=== PATIENT | female | born 1980 | race Caucasian/White ===

== ENCOUNTER 2019-08-06 08:55 | Emergency (ER) | payer OTHER, SELFPAY ==
[2019-08-06 09:25] VITALS: BP 144/97; PULSE 85; RESP 16; TEMP 36.8; O2SAT 100
--- NOTE | 2019-08-06 09:33 | ED.URI ---
HPI - URI/Sore Throat General Chief Complaint: Upper Respiratory Infection Stated Complaint: Cold/Flu symptoms Time Seen by Provider: 08/06/19 09:33 Source: patient and family Mode of arrival: ambulatory History of Present Illness HPI Narrative: Patient presents with concerns that she may have influenza. Cough cold fever and generalized body aches for the past 2 days. Also reports sore throat. No trouble swallowing no drooling normal appetite normal activity able to tolerate p.o. fluids well has not take anything [id number] for symptoms. Severity: mild Related Data Home Medications Medication Instructions Recorded Confirmed alprazolam 1 mg PO BID PRN 06/04/19 06/04/19 escitalopram oxalate 20 mg PO DAILY 06/04/19 06/04/19 omeprazole 40 mg PO DAILY 06/04/19 06/04/19 Allergies Allergy/AdvReac Type Severity Reaction Status Date / Time No Known Allergies Allergy Verified 06/04/19 09:22 Review of Systems Review of Systems: Narrative: CONSTITUTIONAL: Denies fever, chills, or sweats. EYES: Denies visual changes, redness, or discharge. ENT: Denies otalgia. Reports nasal congestion sore throat and body aches CARDIOVASCULAR: Denies chest pain, palpitations, or edema. RESPIRATORY: Denies cough or dyspnea. GASTROINTESTINAL: Denies abdominal pain, nausea, vomiting, or diarrhea. GENITOURINARY: Denies dysuria or hematuria. SKIN: Denies rash or itching. MUSCULOSKELETAL: Denies back pain, joint pain, or myalgia. NEUROLOGIC: Denies headache, numbness, or weakness. PSYCHIATRIC: Denies anxiety or depression. [facility] Family History Family History Other Asthma Depression Diabetes mellitus Family history of arthritis Family history of malignant neoplasm of breast Family history of mental disorder Hypertension Social History Social History Smoking status: Current every day smoker Alcohol intake: current Comments At time of signature, agree with nursing past medical, surgical, social and family history. There is no relevant family history pertinent to the presenting complaint Exam Narrative: Exam Narrative: GENERAL: Well-appearing, well-nourished, and in no acute distress. HEAD: Normocephalic, atraumatic. EYES: PERRLA and EOMI. ENT: Nares clear, no rhinorrhea or epistaxis. Mucous membranes moist. NECK: Supple. CHEST: Clear to auscultation. No respiratory distress. HEART: Regular rate and rhythm. No murmur heard. Normal peripheral pulses. ABDOMEN: Soft, nontender, nondistended, normal active bowel sounds. EXTREMITIES: Normal range of motion. No edema. SKIN: Warm, dry, no rash. NEURO: No focal deficits. Alert and oriented x3. Erich Coma Scale Eye Opening: Spontaneous 4 Erich Coma Scale Motor: Obeys Commands 6 Erich Coma Scale Verbal: Oriented 5 Erich Coma Scale Total 15 Course Vital Signs Vital signs: Vital Signs Temperature 36.8 C 08/06/19 09:25 Pulse Rate 85 08/06/19 09:25 Respiratory Rate 16 08/06/19 09:25 Blood Pressure 144/97 H 08/06/19 09:25 Pulse Oximetry 100 08/06/19 09:25 Temperature 36.8 C 08/06/19 09:25 Pulse Rate 85 08/06/19 09:25 Respiratory Rate 16 08/06/19 09:25 Blood Pressure 144/97 H 08/06/19 09:25 Pulse Oximetry 100 08/06/19 09:25 Please INDERJIT schedule a followup visit with your personal physician for further evaluation and treatment. Including recheck and discussion of your blood pressure. If your symptoms persist, change or worsen significantly before you can contact your personal physician then please, without delay, go to the emergency department for further evaluation Critical dx considered and discussed with pt. Educated patient on red flag s/s and to go to ED if s/s occur. Discussed with pt when to return to [facility] or primary care provider. Pt gave verbal undertstanding, all questions were answered, and pt was agreeable to plan
== END 2019-08-06 10:02 | disposition home or self-care (01) ==
PROVIDERS: Emergency Provider Nurse Practitioner Family
DX: B34.9 Viral infection, unspecified (principal); J06.9 Acute upper respiratory infection, unspecified; J02.8 Acute pharyngitis due to other specified organisms
CPT/HCPCS: 87081; 87804; 87880; 99213; G0463

== ENCOUNTER 2021-12-27 11:36 | Emergency (ER) | payer OTHER, SELFPAY ==
[2021-12-27 11:42] VITALS: BP 126/73; PULSE 86; RESP 20; TEMP 36.9; O2SAT 100
--- NOTE | 2021-12-27 12:56 | ED.GENADULT ---
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 Patient states she has been nauseated no vomiting tenderness with movement and palpation voiced. Patient denies any pain to lower abdominal quadrants or any CVA tenderness. Patient reports that she feel like she has pulled muscles in her stomach region but pain continues, patient does have pain medication and muscle relaxers she takes for her chronic pain. MD complaint: abdominal discomfort Related Data Home Medications Medication Instructions Recorded Confirmed albuterol sulfate 90 mcg/actuation inh inhalation 12/27/21 aerosol inhaler atorvastatin 20 mg tablet tablet 12/27/21 cyclobenzaprine 10 mg tablet tablet 12/27/21 escitalopram oxalate 20 mg tablet tablet 12/27/21 hydrocodone 7.5 mg-acetaminophen tablet 12/27/21 325 mg tablet lorazepam 1 mg tablet tablet 12/27/21 omeprazole 40 mg capsule,delayed cap 12/27/21 release triamcinolone acetonide 0.1 % ea topical 12/27/21 topical ointment Allergies Allergy/AdvReac Type Severity Reaction Status Date / Time No Known Allergies Allergy Verified 06/04/19 09:22 Review of Systems Review of Systems: CONSTITUTIONAL: Denies fever, chills, or sweats. EYES: Denies visual changes, redness, or discharge. ENT: Denies rhinorrhea, congestion, sore throat, or otalgia. CARDIOVASCULAR: Denies chest pain, palpitations, or edema. RESPIRATORY: Denies cough or dyspnea. GASTROINTESTINAL: Positive for abdominal pain around umbilicus area, some nausea,no vomiting, or diarrhea. GENITOURINARY: Denies dysuria or hematuria. SKIN: Denies rash or itching. MUSCULOSKELETAL: Positive for chronic back pain, joint pain, or myalgia. NEUROLOGIC: Denies headache, numbness, or weakness. PSYCHIATRIC: Positive for history of anxiety or depression. [facility] Past Medical History Medical History (Updated 12/28/21 @ 16:01 by Maite Haney NP) Anxiety and depression Asthma Chronic GERD Eczema Elevated cholesterol Fibromyalgia Surgical History Surgical History (Updated 12/28/21 @ 15:50 by Maite Haney NP) H/O umbilical hernia repair Hx of cholecystectomy Previous back surgery Previous section Family History Family History Other Asthma Depression Diabetes mellitus Family history of arthritis Family history of malignant neoplasm of breast Family history of mental disorder Hypertension Social History Social History Smoking status: Current every day smoker Alcohol intake: current Comments At time of signature agree with nursing documentation of past medical, surgical, social, and family history. There is no relevant family history pertinent to presenting complaint. Exam Narrative: GENERAL: Well-appearing, well-nourished, and in no acute distress. HEAD: Normocephalic, atraumatic. EYES: PERRLA and EOMI. ENT: Nares clear, no rhinorrhea or epistaxis. Mucous membranes moist.TM's normal with good light reflex, throat pink with no lesions or exudates or tonsil swelling. NECK: Supple.no lymphadenopathy CHEST: Clear to auscultation. No respiratory distress.SAO2 100% on room air HEART: Regular rate and rhythm. No murmur heard. Normal peripheral pulses. ABDOMEN: Soft, tender to abdomen above umbilicus, no palpable mass noted, nondistended, normal active bowel sounds, no vomiting or any diarrhea EXTREMITIES: Normal range of motion. No edema. SKIN: Warm, dry, no rash. NEURO: No focal deficits. Alert
== END 2021-12-27 13:19 | disposition home or self-care (01) ==
PROVIDERS: Emergency Provider Registered Nurse; PCP Family Medicine
DX: R10.9 Unspecified abdominal pain (principal); F17.200 Nicotine dependence, unspecified, uncomplicated; J45.909 Unspecified asthma, uncomplicated; E78.00 Pure hypercholesterolemia, unspecified; M79.7 Fibromyalgia; F41.9 Anxiety disorder, unspecified; F32.A Depression, unspecified
CPT/HCPCS: 99211; G0463

== ENCOUNTER 2025-05-06 10:49 | Outpatient (CLI) | payer OTHER, SELFPAY ==
--- NOTE | ~2025-05-06 | US_ITS ---
EXAMINATION: US soft tissue abdomen, 05/06/2025 12:30 CDT HISTORY: PERIUMBILICAL PAIN Comparison: None Technique: Sanders-scale and color Doppler images were obtained. Findings: Correlating with the palpable area there is no abnormal mass or mass effect. No abnormal flow. There is no hernia identified IMPRESSION: Unremarkable exam Reviewed, dictated and finalized at location P. IMPRESSION: Unremarkable exam
--- OUTSIDE RECORDS SUMMARY | 2025-05-06 12:43 | XMS_ITS | Encounter Summary ---
Author Organization [facility] Address [address] [place] [address] Phone Care Team Providers Care Design Tech Name Role Phone Harjit Bhandari MD Primary Care Provider [phone] Minerva Connor APRN, CNP Primary Care Provider [phone] Reason for Visit * Reason Comments Medication Refill Encounter Details Date Type Department Care Team (Late st Contact Info) Description 07/28/2023 Refill [facility] [address] [place] [address] Harjit Bhandari MD [address] [place] [address] Medication Refill Social History Tobacco Use Types Packs/Day Years Used Date Smoking Tobacco: Every Day Cigarettes 1 15 Smokeless Tobacco: Never Alcohol Use Standard Drinks/Week Comments No 0 (1 standard drink = 0.6 oz pur e alcohol) Education Answer Date Recorded What is the highest level of school you have completed or the highest degree you have received? 12th grade 03/10/2022 Sexually Active Control Partners Comments Yes Surgical Male Comments No Sex and Gender Information Value Date Recorded Sex Assigned at Not on file Legal Sex Female 7:32 PM CDT Gender Identity Not on file Sexual Orientation Not on file documented as of this encounter Miscellaneous Notes * Telephone Encounter - Danni Downey RMA - 08/02/2023 1:39 PM ENVIRONMENTAL FIELD SERVICES TECHNICIAN 08/10 appt RONMENTAL FIELD SERVICES TECHNICIAN * Telephone Encounter - Danni Downey RMA - 07/31/2023 10:54 AM ENVIRONMENTAL FIELD SERVICES TECHNICIAN Lvm to schedule RONMENTAL FIELD SERVICES TECHNICIAN * Telephone Encounter - Jodie Cedillo RN - 07/28/2023 11:30 AM CST Needs OV with PCP RONMENTAL FIELD SERVICES TECHNICIAN * Telephone Encounter - Jodie Cedillo RN - 07/28/2023 11:29 AM CST Medication failed the protocol, provider to review and approve the medication order if appropriate. Requested Prescriptions Pending Prescriptions Disp Refills atorvastatin (LIPITOR) 20 MG Tablet [Pharmacy Med Name: ATORVASTATIN 20 MG TABLET] 90 Tablet 0 Sig: TAKE 1 TABLET BY MOUTH EVERY DAY Hmg CoA Reductase Inhibitors Protocol Failed - 07/28/2023 12:33 AM Failed - Visit with relevant provider in past 12 months or upcoming 90 days Recent Visits Date Type Provider Dept 07/28/22 Office Visit Harjit Bhandari MD [facility] Showing recent visits within past 365 days and meeting all other requirements Future Appointments No visits were found meeting these conditions. Showing future appointments within next 90 days and meeting all other requirements Failed - Lipid panel in past 12 months No results found for: LDL, HDLCHOLESTE, CHOLESTEROL, TRIGLYCRIDES, VLDL, CHDL, HDLNON Failed - CMP in past 12 months CREATININE - POCT Date Value Ref Range Status 09/09/2022 0.9 0.6 - 1.3 mg/dL Final Passed - No positive test in the past 12 months or most recent test was negative Passed - No active on record RONMENTAL FIELD SERVICES TECHNICIAN documented in this encounter Plan of Treatment Not on file documented as of this encounter Visit Diagnoses Diagnosis Hypertriglyceridemia Pure hyperglyceridemia documented in this encounter Additional Health Concerns Assessment Noted Time PHQ-9 Depression Total Score: 0 06/19/20 19 10:00 AM ENVIRONMENTAL FIELD SERVICES TECHNICIAN documented as of this encounter Care Teams Design Tech Relationship Specialty Start Date End Date Harjit Bhandari MD PCP - General Family Medicine 12/06/18 11/20/23 Minerva Connor APRN, CNP PCP - General Family Medicine 01/01/24 documented as of this encounter
--- OUTSIDE RECORDS SUMMARY | 2025-05-06 12:43 | XMS_ITS | Encounter Summary ---
Author Organization [facility] Address [address] [place] [address] Phone Care Team Providers Care Meter Tester Polyphase Name Role Phone Harjit Bhandari MD Primary Care Provider Minerva Connor APRN, CNP Primary Care Provider [phone] Reason for Visit * Reason Comments Medication Refill Encounter Details Date Type Department Care Team (Late st Contact Info) Description 04/14/2023 Refill [facility] Family [facility] [address] [place] [address] Harjit Bhandari MD [address] [place] [address] Medication Refill Social History Tobacco Use Types [...] encounter Miscellaneous Notes * Telephone Encounter - Jodie Cedillo RN - 04/14/2023 5:14 PM CDT Medication failed the protocol, provider to review and approve the medication order if appropriate. Requested Prescriptions Pending Prescriptions Disp Refills triamcinolone (KENALOG) 0.1 % Ointment [Pharmacy Med Name: TRIAMCINOLONE 0.1% OINTMENT] 80 g 0 Sig: APPLY SPARINGLY TO AFFECTED AREA(S) 3 TIMES DAILY Not Delegated - Topical Steroids Protocol Failed - 04/14/2023 4:29 PM Failed - This refill cannot be delegated Passed - Visit with relevant provider in past 12 months or upcoming 90 days Recent Visits Date Type Provider Dept 07/28/22 Office Visit Harjit Bhandari MD [facility] Showing recent visits within past 365 days and meeting all other requirements Future Appointments No visits were found meeting these conditions. Showing future appointments within next 90 days and meeting all other requirements documented in this encounter Plan of Treatment Not on file documented as of this encounter Visit Diagnoses Not on filedocumented in this encounter Additional Health Concerns Assessment Noted Time PHQ-9 Depression Total Score: 0 06/19/20 19 10:00 AM INSTRUCTOR PSYCHIATRIC AIDE documented as of this encounter Care Teams Meter Tester Polyphase Relationship Specialty Start Date End Date Harjit Bhandari MD PCP - General Family Medicine 12/06/18 11/20/23 Minerva Connor APRN, CNP PCP - General Family Medicine 01/01/24 documented as of this encounter
--- OUTSIDE RECORDS SUMMARY | 2025-05-06 12:43 | XMS_ITS | Encounter Summary ---
Author Organization [facility] Address [address] [place] [address] Phone Care Team Providers Care Director Of Institutional Giving Name Role Phone Harjit Bhandari MD Primary Care Provider [phone] Minerva Connor APRN, CNP Primary Care Provider [phone] Reason for Visit * Reason Comments Medication Refill Encounter Details Date Type Department Care Team (Late st Contact Info) Description 08/10/2023 Refill [facility] - Family Medicine [facility] [address] [place] [address] Harjit Bhandari MD [address] [place] [address] Medication Refill Social History Tobacco Use Types [...] on file documented as of this encounter Functional Status * Question Answer Date of Assessment Author Little interest or pleasure in doing things Not at all 08/10/2023 1:00 PM PHOTOENGRAVER APPRENTICE Lauryn Nunes , AUTOMOTIVE SALESPERSON Feeling down, depressed, or hopeless Not at all 08/10/2023 1:00 PM PHOTOENGRAVER APPRENTICE Lauryn Nunes CMA * Over the past 2 weeks, how often have you been bothered by any of the following problems? Question Answer Date of Assessment Author Patient Health Questionnaire -2 Score 0 08/10/2023 1:00 PM PHOTOENGRAVER APPRENTICE Lauryn Nunes CMA documented as of this encounter Miscellaneous Notes * Telephone Encounter - Jodie Cedillo RN - 08/15/2023 7:26 AM CST Name from pharmacy: ESCITALOPRAM 20 MG TABLET Will file in chart as: escitalopram (LEXAPRO) 20 MG Tablet The original prescription was reordered on 08/14/2023 by Harjit Bhandari MD. OENGRAVER APPRENTICE * Telephone Encounter - Jodie Cedillo RN - 08/11/2023 10:57 AM CST duplicate OENGRAVER APPRENTICE documented in this encounter Plan of Treatment Not on file documented as of this encounter Visit Diagnoses Not on filedocumented in this encounter Additional Health Concerns Assessment Noted Time PHQ-9 Depression Total Score: 0 06/19/20 19 10:00 AM PHOTOENGRAVER APPRENTICE documented as of this encounter Care Teams Director Of Institutional Giving Relationship Specialty Start Date End Date Harjit Bhandari MD PCP - General Family Medicine 12/06/18 11/20/23 Minerva Connor APRN, CNP PCP - General Family Medicine 01/01/24 documented as of this encounter
--- OUTSIDE RECORDS SUMMARY | 2025-05-06 12:43 | XMS_ITS | Encounter Summary ---
Author Organization [facility] Address [address] [place] [address] Phone Care Team Providers Care Dental Director Name Role Phone Harjit Bhandari MD Primary Care Provider [phone] Minerva Connor APRN, CNP Primary Care Provider [phone] Reason for Visit * Reason Comments Medication Refill Encounter Details Date Type Department Care Team (Late st Contact Info) Description 07/29/2023 Refill [facility] - Family [facility] [address] [place] [address] Harjit Bhandari MD [address] [place] [address] Medication Refill Social History Tobacco Use Types [...] Encounter - Danni Downey RMA - 08/02/2023 10:12 AM ASSISTANT PRESSMAN LVM STANT PRESSMAN * Telephone Encounter - Danni Downey RMA - 07/31/2023 11:31 AM ASSISTANT PRESSMAN LVm STANT PRESSMAN * Telephone Encounter - Jodie Cedillo RN - 07/31/2023 11:08 AM CST Needs OV with PCP for refills. STANT PRESSMAN * Telephone Encounter - Jodie Cedillo RN - 07/31/2023 11:07 AM CST Last appt 07/28/22 - last Rx 04/13/23 STANT PRESSMAN documented in this encounter Plan of Treatment Not on file documented as of this encounter Visit Diagnoses Diagnosis Neck pain, musculoskeletal Cervicalgia documented in this encounter Additional Health Concerns Assessment Noted Time PHQ-9 Depression Total Score: 0 06/19/20 19 10:00 AM ASSISTANT PRESSMAN documented as of this encounter Care Teams Dental Director Relationship Specialty Start Date End Date Harjit Bhandari MD PCP - General Family Medicine 12/06/18 11/20/23 Minerva Connor APRN, JOANNE PCP - General Family Medicine 01/01/24 documented as of this encounter
--- OUTSIDE RECORDS SUMMARY | 2025-05-06 12:43 | XMS_ITS | Encounter Summary ---
Author Organization [facility] Address [address] [place] [address] Phone Care Team Providers Care Ice Delivery Driver Name Role Phone Harjit Bhandari MD Primary Care Provider [phone] Minerva Connor APRN, CNP Primary Care Provider [phone] Reason for Visit * Reason Comments Medication Refill Encounter Details Date Type Department Care Team (Late st Contact Info) Description 02/18/2021 Refill [facility] Family Medicine [facility] [address] [place] [address] Harjit Bhandari MD [address] [place] [address] Medication Refill Social History Tobacco Use Types Packs/Day Years Used Date Smoking Tobacco: Every Day Cigarettes Smokeless Tobacco: Never Alcohol Use Standard Drinks/Week Comments No 0 (1 standard drink = 0.6 oz pur e alcohol) Education Answer Date Recorded What is the highest level of school you have completed or the highest degree you have received? 11th grade 08/13/2020 Sexually Active Control Partners Comments Yes Surgical Male Comments No Sex and Gender Information Value Date Recorded Sex Assigned at Not on file Legal Sex Female 7:32 PM CDT Gender Identity Not on file Sexual Orientation Not on file COVID-19 Exposure Response Date Recorded In the last month, have you been in contact with someone who was confirmed or suspected to have Coronavirus / COVID-19? No / Unsure 02/15/2021 9:55 AM CDT documented as of this encounter Miscellaneous Notes * Telephone Encounter - NguyenBjliz Fairchild RN - 02/18/2021 11:25 AM CDT [place] 01/20/21 Medication failed the protocol, provider to review and approve the medication order if appropriate. Requested Prescriptions Pending Prescriptions Disp Refills LORazepam (ATIVAN) 1 MG Tablet [Pharmacy Med Name: LORAZEPAM 1 MG TABLET] 60 Tablet 0 Sig: TAKE 1 TABLET BY MOUTH TWICE A DAY [facility] Not Delegated - Anesthesia: Anesthetics & Sedatives Failed - 02/18/2021 11:25 AM Failed - This refill cannot be delegated Passed - Valid encounter within last 6 months Past Office Visits Recent Outpatient Visits 3 days ago Left arm numbness [facility] Harjit Toussaint MD 1 month ago Primary osteoarthritis involving multiple joints [facility] Harjit Toussaint MD 4 months ago Chest pain, unspecified type [facility] Harjit Toussaint MD 6 months ago Primary osteoarthritis involving multiple joints [facility] Harjit Toussaint MD 11 months ago Sacroiliac joint dysfunction of both sides [facility] Harjit Toussaint MD Upcoming Appointments Future Appointments In 1 month [id number] [facility], [facility] In 1 month [id number] [facility], [facility] In 1 month [facility]it Bhandari MD [facility] IRON MOLDER HELPER - Recent and Past Visits Recent Visits Date Type Provider Dept 02/15/21 Office Visit Harjit Bhandari MD [facility] 12/30/20 Office Visit Harjit Bhandari MD [facility] 09/25/20 Office Visit Harjit Bhandari MD [facility] 08/13/20 Telemedicine Harjit Bhandari MD [facility] 03/04/20 Telemedicine Harjit Bhandari MD [facility] 11/25/19 Office Visit Harjit Bhandari MD [facility] Showing recent visits within past 460 days with a meds authorizing provider and meeting all other requirements Future Appointments Date Type Provider Dept 04/01/21 Appointment Harjit Bhandari MD [facility] Showing future appointments within next 90 days with a meds authorizing provider and meeting all other requirements documented in this encounter Plan of Treatment Not on file documented as of this encounter Visit Diagnoses Diagnosis Anxiety Anxiety state, unspecified documented in this encounter Additional Health Concerns Assessment Noted Time PHQ-9 Depression Total Score: 0 06/19/20 19 10:00 AM BOX REPAIRER documented as of this encounter Care Teams Ice Delivery Driver Relationship Specialty Start Date End Date Harjit Bhandari MD PCP - General Family Medicine 12/06/18 11/20/23 Minerva Connor APRN, POND SAWYER PCP - General Family Medicine 01/01/24 documented as of this encounter
--- OUTSIDE RECORDS SUMMARY | 2025-05-06 12:43 | XMS_ITS | Encounter Summary ---
Author Organization [facility] Address [address] [place] [address] Phone Care Team Providers Care Parts Processor Name Role Phone Harjit Bhandari MD Primary Care Provider [phone] Minerva Connor APRN, CNP Primary Care Provider [phone] Reason for Visit * Reason Comments Medication Refill Encounter Details Date Type Department Care Team (Late st Contact Info) Description 12/17/2020 Refill [facility] [address]2 [place] [address] Harjit Bhandari MD [address] [place] [address] Medication Refill Social History Tobacco Use Types Packs/Day Years Used Date Smoking Tobacco: Every Day Cigarettes Smokeless Tobacco: Never Alcohol Use Standard Drinks/Week Comments No 0 (1 standard drink = 0.6 oz pur e alcohol) Education Answer Date Recorded What is the highest level of school you have completed or the highest degree you have received? 11th grade 08/13/2020 Comments No Sex and Gender Information Value Date Recorded Sex Assigned at Not on file Legal Sex Female 7:32 PM CDT Gender Identity Not on file Sexual Orientation Not on file documented as of this encounter Miscellaneous Notes * Telephone Encounter - Marlin Whiteside RN - 12/17/2020 2:54 PM CDT Medication failed the protocol, provider to review and approve the medication order if appropriate.Last OV 09/25/20, See UDS results from 09/25/20. PDMP reviewed-see month of October Requested Prescriptions Pending Prescriptions Disp Refills LORazepam (ATIVAN) 1 MG Tablet [Pharmacy Med Name: LORAZEPAM 1 MG TABLET] 60 Tablet 0 Sig: TAKE 1 TABLET BY MOUTH TWICE A DAY healthfinch Not Delegated - Anesthesia: Anesthetics & Sedatives Failed - 12/17/2020 2:54 PM Failed - This refill cannot be delegated Passed - Valid encounter within last 6 months Past Office Visits Recent Outpatient Visits 2 months ago Chest pain, unspecified type [facility] Harjit Brown MD 4 months ago Primary osteoarthritis involving multiple joints [facility] Harjit Toussaint MD 9 months ago Sacroiliac joint dysfunction of both sides [facility] Harjit Toussaint MD 1 year ago Current moderate episode of major depressive disorder, unspecified whether recurrent (HCC) [facility] Harjit Toussaint MD 1 year ago Acute pain of left knee [facility] Edu GilsonHarjit Marquez MD Upcoming Appointments Future Appointments In 1 week Harjit Bhandari MD [facility]YSTAL CUTTER - Recent and Past Visits Recent Visits Date Type Provider Dept 09/25/20 Office Visit Harjit Bhandari MD [facility] 08/13/20 Telemedicine Harjit Bhandari MD [facility] 03/04/20 Telemedicine Harjit Bhandari MD [facility] 11/25/19 Office Visit Harjit Bhandari MD [facility] Showing recent visits within past 460 days with a meds authorizing provider and meeting all other requirements Future Appointments Date Type Provider Dept 12/28/20 Appointment Harjit Bhandari MD [facility] Showing [...] Total Score: 0 06/19/20 19 10:00 AM INTERVENTIONAL TECHNOLOGIST documented as of this encounter Care Teams Parts Processor Relationship Specialty Start Date End Date Harjit Bhandari MD PCP - General Family Medicine 12/06/18 11/20/23 Minerva Connor APRN, JOANNE PCP - General Family Medicine 01/01/24 documented as of this encounter
--- OUTSIDE RECORDS SUMMARY | 2025-05-06 12:43 | XMS_ITS | Encounter Summary ---
Author Organization [facility] Address [address] [place] [address] Phone Care Team Providers Care Search Engine Optimization Consultant Name Role Phone Harjit Bhandari MD Primary Care Provider [phone] Minerva Connor APRN, CNP Primary Care Provider [phone] Reason for Visit * Reason Comments Medication Refill Encounter Details Date Type Department Care Team (Late st Contact Info) Description 05/13/2023 Refill [facility] Family [facility] [address]2 [place] [address] Harjit Bhandari MD [address]1 [place] [address] Medication Refill Social History Tobacco Use Types [...] encounter Miscellaneous Notes * Telephone Encounter - Ema Curry RN - 05/13/2023 11:49 AM CDT Medication failed the protocol, provider to review and approve the medication order if appropriate. Requested Prescriptions Pending Prescriptions Disp Refills escitalopram (LEXAPRO) 20 MG Tablet [Pharmacy Med Name: ESCITALOPRAM 20 MG TABLET] 90 Tablet 0 Sig: TAKE 1 TABLET BY MOUTH EVERY DAY SSRI (6 Month Refill Only) Protocol Failed - 05/13/2023 8:35 AM Failed - Visit with relevant provider in past 6 months or upcoming 90 days Recent Visits No visits were found meeting these conditions. Showing recent visits within past 182 days and meeting all other requirements Future Appointments No visits were found meeting these conditions. Showing future appointments within next 90 days and meeting all other requirements Failed - Has an encounter in the past 6 months with a depression, anxiety, adjustment disorder, OCD, or PTSD visit diagnosis Passed - No test in the past 12 months or most recent test was negative Passed - No active on record Passed - Patient has established therapy with SSRI for at least 6 months documented in this encounter Plan of Treatment Not on file documented as of this encounter Visit Diagnoses Not on filedocumented in this encounter Additional Health Concerns Assessment Noted Time PHQ-9 Depression Total Score: 0 06/19/20 19 10:00 AM ERP CONSULTANT documented as of this encounter Care Teams Search Engine Optimization Consultant Relationship Specialty Start Date End Date Harjit Bhandari MD PCP - General Family Medicine 12/06/18 11/20/23 Minerva Connor APRN, VP ANCILLARY PCP - General Family Medicine 01/01/24 documented as of this encounter
--- OUTSIDE RECORDS SUMMARY | 2025-05-06 12:43 | XMS_ITS | Encounter Summary ---
Author Organization [facility] Address [address] [place] [address] Phone Care Team Providers Care Reproduction Artist Name Role Phone Harjit Bhandari MD Primary Care Provider [phone] Minerva Connor APRN, CNP Primary Care Provider [phone] Reason for Visit * Reason Comments Medication Refill Encounter Details Date Type Department Care Team (Late st Contact Info) Description 10/23/2022 Refill [facility] [address]2 [place] [address] Harjit Bhandari MD [address] [place] [address] Medication Refill Social History Tobacco Use Types [...] encounter Miscellaneous Notes * Telephone Encounter - Loli Mcrae RN - 10/24/2022 9:11 AM CDT Medication failed the protocol, provider to review and approve the medication order if appropriate. Requested Prescriptions Pending Prescriptions Disp Refills FLUoxetine (PROzac) 20 MG Capsule [Pharmacy Med Name: FLUOXETINE HCL 20 MG CAPSULE] 90 Capsule 0 Sig: TAKE 1 CAPSULE BY MOUTH EVERY DAY SSRI (6 Month Refill Only) Protocol Failed - 10/23/2022 8:02 AM Failed - Patient has established therapy with SSRI for at least 6 months Passed - No test in the past 12 months or most recent test was negative Passed - No active on record Passed - Visit with relevant provider in past 6 months or upcoming 90 days Recent Visits Date Type Provider Dept 07/28/22 Office Visit Harjit Bhandari MD [facility] Showing recent visits within past 182 days and meeting all other requirements Future Appointments No visits were found meeting these conditions. Showing future appointments within next 90 days and meeting all other requirements Passed - Has an encounter in the past 6 months with a depression, anxiety, adjustment disorder, OCD, or PTSD visit diagnosis documented in this encounter Plan of Treatment Not on file documented as of this encounter Visit Diagnoses Diagnosis Current moderate episode of major depressive disorder, unspecified whether recurrent documented in this encounter Additional Health Concerns Assessment Noted Time PHQ-9 Depression Total Score: 0 06/19/20 19 10:00 AM PIN PUSHER documented as of this encounter Care Teams Reproduction Artist Relationship Specialty Start Date End Date Harjit Bhandari MD PCP - General Family Medicine 12/06/18 11/20/23 Minerva Connor APRN, SYSTEM TECHNOLOGIST PCP - General Family Medicine 01/01/24 documented as of this encounter
--- OUTSIDE RECORDS SUMMARY | 2025-05-06 12:44 | XMS_ITS | Encounter Summary ---
Author Organization [facility] Address [address] [place] [address] Phone Care Team Providers Care Cork Insulation Setter Name Role Phone Harjit Bhandari MD Primary Care Provider [phone] Minerva Connor APRN, CNP Primary Care Provider [phone] Reason for Visit * Reason Comments Medication Refill Encounter Details Date Type Department Care Team (Late st Contact Info) Description 10/18/2021 Refill [facility] - Family [facility] #2 [place] [address] Harjit Bhandari MD [address] [place] [address] Medication Refill Social History Tobacco Use Types [...] Exposure Response Date Recorded In the last 10 days, have yo u been in contact with someone who was confirmed or suspected to have Coronavirus/COVID-19? No / Unsure 10/12/2021 5:31 PM CDT documented as of this encounter Miscellaneous Notes * Telephone Encounter - Kerrie Hickman RN - 10/19/2021 11:22 AM CDT Medication failed the protocol, provider to review and approve the medication order if appropriate. Requested Prescriptions Pending Prescriptions Disp Refills cyclobenzaprine (FLEXERIL) 10 MG Tablet [Pharmacy Med Name: CYCLOBENZAPRINE 10 MG TABLET] 42 Tablet0 Sig: Take 1 Tablet by mouth 3 times daily as needed for Muscle spasms for up to 14 days. Can make you tired. Try at night first. Not Delegated - Muscle Relaxants Protocol Failed - 10/18/2021 5:56 PM Failed - This refill cannot be delegated Failed - Active on medication list Passed - Visit with relevant provider in past 12 months or upcoming 90 days Recent Visits Date Type Provider Dept 10/12/21 Office Visit Harjit Bhandari MD [facility] 07/29/21 Office Visit Harjit Bhandari MD [facility] 04/02/21 Office Visit Harjit Bhandari MD [facility] 02/15/21 Office Visit Harjit Bhandari MD [facility] 12/30/20 Office Visit Harjit Bhandari MD [facility] Showing recent visits within past 365 days and meeting all other requirements Future Appointments Date Type Provider Dept 10/27/21 Appointment Harjit Bhandari MD [facility] Showing future appointments within next 90 days and meeting all other requirements documented in this encounter Plan of Treatment Not on file documented as of this encounter Visit Diagnoses Diagnosis Neck pain, musculoskeletal Cervicalgia documented in this encounter Additional Health Concerns Assessment Noted Time PHQ-9 Depression Total Score: 0 06/19/20 19 10:00 AM MACHINE WELDER documented as of this encounter Care Teams Cork Insulation Setter Relationship Specialty Start Date End Date Harjit Bhandari MD PCP - General Family Medicine 12/06/18 11/20/23 Minerva Connor APRN, BRIDGE OPERATOR PCP - General Family Medicine 01/01/24 documented as of this encounter
--- OUTSIDE RECORDS SUMMARY | 2025-05-06 12:44 | XMS_ITS | Encounter Summary ---
Author Organization [facility] Address [address] [place] [address] Phone Care Team Providers Care Java Lead Developer Name Role Phone Harjit Bhandari MD Primary Care Provider Minerva Connor APRN, CNP Primary Care Provider [phone] Reason for Visit * Reason Comments Medication Refill Encounter Details Date Type Department Care Team (Late st Contact Info) Description 06/20/2021 Refill [facility] - Family Medicine [facility] [address]2 [place] [address] Harjit Bhandari MD [address] [place] [address] Medication Refill Social History Tobacco Use Types [...] Telephone Encounter - Jodie Cedillo RN - 06/21/2021 11:25 AM CST PDMP 04/27/21 - last appt 04/02/21 - no follow up Medication failed the protocol, provider to review and approve the medication order if appropriate. Requested Prescriptions Pending Prescriptions Disp Refills LORazepam (ATIVAN) 1 MG Tablet [Pharmacy Med Name: LORAZEPAM 1 MG TABLET] 60 Tablet 0 Sig: TAKE 1 TABLET BY MOUTH TWICE A DAY Y DUMP DRIVER documented in this encounter Plan of Treatment Not on file documented as of this encounter Visit Diagnoses Diagnosis Anxiety Anxiety state, unspecified documented in this encounter Additional Health Concerns Assessment Noted Time PHQ-9 Depression Total Score: 0 06/19/20 10:00 AM BELLY DUMP DRIVER documented as of this encounter Care Teams Java Lead Developer Relationship Specialty Start Date End Date Harjit Bhandari MD PCP - General Family Medicine 12/06/18 11/20/23 Minevra Connor APRN, CONTROL CLERK REPAIRS PCP - General Family Medicine 01/01/24 documented as of this encounter
--- OUTSIDE RECORDS SUMMARY | 2025-05-06 12:44 | XMS_ITS | Encounter Summary ---
Author Organization [facility] Address [address] [place] [address] Phone Care Team Providers Care Tube Tester Name Role Phone Harjit Bhandari MD Primary Care Provider [phone] Minerva Connor APRN, CNP Primary Care Provider [phone] Reason for Visit * Reason Comments Medication Refill Encounter Details Date Type Department Care Team (Late st Contact Info) Description 10/17/2021 Refill [facility] - Family [facility] #2 [place] [address] Alvarez Diaz MD [address] [address] Medication Refill Social History Tobacco Use Types [...] Telephone Encounter - Jodie Cedillo RN - 10/18/2021 10:34 AM CDT Per nursing clinical judgement, provider to review and approve the medication(s) order(s) if appropriate. Requested Prescriptions Pending Prescriptions Disp Refills escitalopram (LEXAPRO) 20 MG Tablet [Pharmacy Med Name: ESCITALOPRAM 20 MG TABLET] 90 Tablet 1 Sig: TAKE 1 TABLET BY MOUTH EVERY DAY SSRI (6 Month Refill Only) Protocol Passed - 10/17/2021 7:46 AM Passed - No test in the past 12 months or most recent test was negative Passed - No active on record Passed - Visit with relevant provider in past 6 months or upcoming 90 days Recent Visits Date Type Provider Dept 10/12/21 Office Visit Harjit Bhandari MD [facility] 07/29/21 Office Visit Harjit Bhandari MD [facility] Showing recent visits within past 182 days and meeting all other requirements Future Appointments Date Type Provider Dept 10/27/21 Appointment Harjit Bhandari MD [facility] Showing future appointments within next 90 days and meeting all other requirements Passed - Patient has established therapy with SSRI for at least 6 months Passed - Has an encounter in the past 6 months with a depression, anxiety, adjustment disorder, OCD, or PTSD visit diagnosis documented in this encounter Plan of Treatment Not on file documented as of this encounter Visit Diagnoses Not on filedocumented in this encounter Additional Health Concerns Assessment Noted Time PHQ-9 Depression Total Score: 0 06/19/20 19 10:00 AM CHIEF ENVIRONMENTAL COMMITMENT OFFICER documented as of this encounter Care Teams Tube Tester Relationship Specialty Start Date End Date Harjit Bhandari MD PCP - General Family Medicine 12/06/18 11/20/23 Minerva Connor APRN, JOANNE PCP - General Family Medicine 01/01/24 documented as of this encounter
--- OUTSIDE RECORDS SUMMARY | 2025-05-06 12:44 | XMS_ITS | Encounter Summary ---
Author Organization [facility] Address [address] [place] [address] Phone Care Team Providers Care Green Pipefitter Name Role Phone Harjit Bhandari MD Primary Care Provider [phone] Minerva Connor APRN, CNP Primary Care Provider [phone] Reason for Visit * Reason Comments Medication Refill Encounter Details Date Type Department Care Team (Late st Contact Info) Description 01/20/2021 Refill [facility] - Family Medicine [facility] [address]2 [place] [address] Harjit Bhandari MD [address] [place] [address] Medication Refill Social History Tobacco Use Types [...] have Coronavirus / COVID-19? No / Unsure 12/30/2020 11:17 AM CDT documented as of this encounter Miscellaneous Notes * Telephone Encounter - Bj Cedilloliz Fairchild, RN - 01/20/2021 4:11 PM CDT [place] PD[place] 12/17/20 Lorazepam Patient states she still needs the Chantix, taking as prescribed Medication failed the protocol, provider to review and approve the medication order if appropriate. Requested Prescriptions Pending Prescriptions Disp Refills Chantix 1 MG Tablet [Pharmacy Med Name: CHANTIX 1 MG TABLET] 60 Tablet 1 Sig: TAKE 1 TABLET BY MOUTH 2 TIMES DAILY. healthfinch Not Delegated - Psychiatry: Drug Dependence Therapy Failed - 01/20/2021 4:11 PM Failed - This refill cannot be delegated Passed - Valid encounter within last 12 months Past Office Visits Recent Outpatient Visits 3 weeks ago Primary osteoarthritis involving multiple joints [facility] Harjit Toussaint MD 3 months ago Chest pain, unspecified type [facility] - Harjit Brown MD 5 months ago Primary osteoarthritis involving multiple joints [facility] Harjit Toussaint MD 10 months ago Sacroiliac joint dysfunction of both sides [facility] Harjit Toussaint MD 1 year ago Current moderate episode of major depressive disorder, unspecified whether recurrent (HCC) [facility] Harjit Toussaint MD Upcoming Appointments Future Appointments In 2 months Harjit Bhandari MD [facility] Gilson [facility] KETTLE ROOM HELPER - Recent and Past Visits Recent Visits Date Type Provider Dept 12/30/20 [facility] [...] authorizing provider and meeting all other requirements Passed - Last BP in normal range BP Readings from Last 1 Encounters: 12/30/20 132/90 LORazepam (ATIVAN) 1 MG Tablet [Pharmacy Med Name: LORAZEPAM 1 MG TABLET] 60 Tablet 0 Sig: TAKE 1 TABLET BY MOUTH TWICE A DAY healthfinch Not Delegated - Anesthesia: Anesthetics & Sedatives Failed - 01/20/2021 4:11 PM Failed - This refill cannot be delegated Passed - Valid encounter within last 6 months Past Office Visits Recent Outpatient Visits 3 weeks ago Primary osteoarthritis involving multiple joints [facility] Harjit Toussaint MD 3 months ago Chest pain, unspecified type [facility] Harjit Toussaint MD 5 months ago Primary osteoarthritis involving multiple joints [facility] Harjit Toussaint MD 10 months ago Sacroiliac joint dysfunction of both sides [facility] Harjit Toussaint MD 1 year ago Current moderate episode of major depressive disorder, unspecified whether recurrent (HCC) [facility] Harjit Toussaint MD Upcoming Appointments Future Appointments In 2 months Harjit Bhandari MD [facility] KETTLE ROOM HELPER - Recent and Past Visits Recent Visits Date Type Provider Dept 12/30/20 Office Visit [facility] [...] Depression Total Score: 0 06/19/20 10:00 AM SUPERVISOR SOUND TECHNICIAN documented as of this encounter Care Teams Green Pipefitter Relationship Specialty Start Date End Date Harjit Bhandari MD PCP - General Family Medicine 12/06/18 11/20/23 Minerva Connor APRN, JOANNE PCP - General Family Medicine 01/01/24 documented as of this encounter
--- OUTSIDE RECORDS SUMMARY | 2025-05-06 12:44 | XMS_ITS | Encounter Summary ---
Author Organization [facility] Address [address] [place] [address] Phone Care Team Providers Care Recruiting And Selection Consultant Name Role Phone Nikolas, Minerva FELTON CNP Primary Care Provider [phone] Reason for Visit * Reason Comments Medication Refill Encounter Details Date Type Department Care Team (Late st Contact Info) Description 12/31/2023 Refill [facility] - Family [facility] #2 [place] [address] Harjit Bhandari MD [address] [place] [address] Medication Refill Social History Tobacco Use Types [...] Telephone Encounter - Jodie Cedillo RN - 01/01/2024 8:34 AM CDT Images from the original note were not included. December 19, 2023 Me to Harjit Bhandari MD DS 12/19/23 3:[address] Bhandari - she has seen Jamal and Shannan but did not transfer care. Lorazepam was declined because she got a different strength from another out of office provider. LORazepam Dispensed Days Supply Quantity Provider Pharmacy LORAZEPAM 0.5 MG TABLET 12/13/2023 30 30 Each Minerva Connor APRN, CNP [facility] [id number] [place] [facility] ... LORAZEPAM 1 MG TABLET 10/13/2023 30 60 Each Harjit Bhandari MD [facility] [address] [place] [facility] ... documented in this encounter Plan of Treatment Not on file documented as of this encounter Visit Diagnoses Diagnosis Anxiety Anxiety state, unspecified documented in this encounter Additional Health Concerns Assessment Noted Time PHQ-9 Depression Total Score: 0 09/12/19 9:59 AM HELP DESK CONSULTANT documented as of this encounter Care Teams Recruiting And Selection Consultant Relationship Specialty Start Date End Date Minerva Connor APRN, CNP PCP - General Family Medicine 01/01/24 documented as of this encounter
--- OUTSIDE RECORDS SUMMARY | 2025-05-06 12:44 | XMS_ITS | Encounter Summary ---
Author Organization [facility] Address [address] [place] [address] Phone Care Team Providers Care Leather Polisher Name Role Phone Minerva Connor APRN, CNP Primary Care Provider [phone] Reason for Visit * Reason Comments Medication Refill Encounter Details Date Type Department Care Team (Late st Contact Info) Description 07/29/2024 Refill [facility] - Family Medicine [facility] [address]2 [place] [address] Jamal Valdez APRN, EDUCATIONAL PROGRAM DIRECTOR [address] [address] Medication Refill Social History Tobacco Use Types [...] on file documented as of this encounter Plan of Treatment Not on file documented as of this encounter Visit Diagnoses Not on filedocumented in this encounter Additional Health Concerns Assessment Noted Time PHQ-9 Depression Total Score: 0 09/12/19 24 9:59 AM QUALITY ASSURANCE LAB TECHNICIAN documented as of this encounter Care Teams Leather Polisher Relationship Specialty Start Date End Date Connor, Minerva, POOL HALL INSPECTOR, JOANNE PCP - General Family Medicine 01/01/24 documented as of this encounter
--- OUTSIDE RECORDS SUMMARY | 2025-05-06 12:44 | XMS_ITS | Encounter Summary ---
Author Organization [facility] Address [address] [place] [address] Phone Care Team Providers Care Machine Setup Operator Name Role Phone Harjit Bhandari MD Primary Care Provider [phone] Minerva Connor APRN, CNP Primary Care Provider [phone] Reason for Visit * Reason Comments Medication Refill Encounter Details Date Type Department Care Team (Late st Contact Info) Description 04/26/2021 Refill [facility] [address] [place] [address] Harjit Bhandari MD [address] [place] [address] Medication Refill Social History Tobacco Use Types [...] have Coronavirus / COVID-19? No / Unsure 04/19/2021 6:07 PM CDT documented as of this encounter Miscellaneous Notes * Telephone Encounter - Jodie Cedillo RN - 04/27/2021 8:32 AM CDT [place] PDMP 03/26/21 Medication failed the protocol, provider to review and approve the medication order if appropriate. Requested Prescriptions Pending Prescriptions Disp Refills LORazepam (ATIVAN) 1 MG Tablet [Pharmacy Med Name: LORAZEPAM 1 MG TABLET] 60 Tablet 0 Sig: TAKE 1 TABLET BY MOUTH TWICE A DAY [facility] Not Delegated - Anesthesia: Anesthetics & Sedatives Failed - 04/27/2021 8:31 AM Failed - This refill cannot be delegated Passed - Valid encounter within last 6 months Past Office Visits Recent Outpatient Visits 3 weeks ago Fatigue, unspecified type [facility] - Family [facility] - Harjit Brown MD 2 months ago Left arm numbness [facility] - Family [facility] - Harjit Brown MD 3 months ago Primary osteoarthritis involving multiple joints [facility] Harjit Toussaint MD 7 months ago Chest pain, unspecified type [facility] - Family [facility] - Harjit Brown MD 8 months ago Primary osteoarthritis involving multiple joints [facility] - Family [facility] Harjit Toussaitn MD Upcoming Appointments HEALTH AND SAFETY INSPECTOR - Recent and Past Visits Recent Visits Date Type Provider Dept 04/02/21 Office Visit Harjit Bhandari MD [facility] 02/15/21 Office Visit Harjit Bhandari MD [facility] 12/30/20 Office Visit Harjit Bhandari MD [facility] 09/25/20 Office Visit Harjit Bhandari MD [facility] 08/13/20 Telemedicine Harjit Bhandari MD [facility] 03/04/20 Telemedicine Harjit Bhandari MD [facility] Showing recent visits within past 460 days [...] Depression Total Score: 0 06/19/20 10:00 AM BUSINESS INTEGRATION ANALYST documented as of this encounter Care Teams Machine Setup Operator Relationship Specialty Start Date End Date Harjit Bhandari MD PCP - General Family Medicine 12/06/18 11/20/23 Minerva Connor APRN, JOANNE PCP - General Family Medicine 01/01/24 documented as of this encounter
--- OUTSIDE RECORDS SUMMARY | 2025-05-06 12:44 | XMS_ITS | Encounter Summary ---
Author Organization [facility] Address [address] [place] [address] Phone Care Team Providers Care Absorption Plant Operator Helper Name Role Phone aHrjit Bhandari MD Primary Care Provider [phone] Minerva Connor APRN, CNP Primary Care Provider [phone] Reason for Visit * Reason Comments Medication Refill Encounter Details Date Type Department Care Team (Late st Contact Info) Description 06/16/2022 Refill [facility] [address] [place] [address] Harjit Bhandari MD [address] [place] [address] Medication Refill Social History Tobacco Use Types [...] Telephone Encounter - Jodie Cedillo RN - 06/17/2022 7:55 AM CST PDMP 04/13/22 Medication failed the protocol, provider to review and approve the medication order if appropriate. Requested Prescriptions Pending Prescriptions Disp Refills LORazepam (ATIVAN) 1 MG Tablet [Pharmacy Med Name: LORAZEPAM 1 MG TABLET] 60 Tablet 0 Sig: TAKE 1 TABLET BY MOUTH TWICE A DAY Not Delegated - Benzodiazepines Protocol Failed - 06/16/2022 8:47 PM Failed - This refill cannot be delegated Passed - Visit with relevant provider in past 12 months or upcoming 90 days Recent Visits Date Type Provider Dept 03/17/22 Office Visit Harjit Bhandari MD [facility] 11/04/21 Office Visit Harjit Bhandari MD [facility] 10/12/21 Office Visit Harjit Bhandari MD [facility] 07/29/21 Office Visit Harjit Bhandari MD [facility] Showing recent visits within past 365 days and meeting all other requirements Future Appointments Date Type Provider Dept 07/19/22 Appointment Harjit Bhandari MD [facility] Showing future appointments within next 90 days and meeting all other requirements [facility] documented in this encounter Plan of Treatment Not on file documented as of this encounter Visit Diagnoses Diagnosis Anxiety Anxiety state, unspecified documented in this encounter Additional Health Concerns Assessment Noted Time PHQ-9 Depression Total Score: 0 06/19/20 19 10:00 AM [facility] documented as of this encounter Care Teams Absorption Plant Operator Helper Relationship Specialty Start Date End Date Harjit Bhandari MD PCP - General Family Medicine 12/06/18 11/20/23 Minerva Connor APRN, CNP PCP - General Family Medicine 01/01/24 documented as of this encounter
--- OUTSIDE RECORDS SUMMARY | 2025-05-06 12:44 | XMS_ITS | Clinical Summary ---
Author Organization [facility] Address [address] [place] [address] Phone Care Team Providers Care Elementary Summer School Teacher Name Role Phone Nikolas, Minerva FELTON CNP Primary Care Provider [phone] Allergies No known active allergies Medications naloxone HCl (Narcan) 4 MG/0.1ML Liquid Give one spray Q2-3 minutes until pt responds or medical assistance arrives 2 Each 2 2 Active albuterol 108 (90 Base) MCG/ACT Aerosol SolutionIndicatio ns:Bronchospasm INHALE 2 PUFFS BY MOUTH EVERY 4 HOURS NEEDED FOR WHEEZE 18 g 1 3 Active triamcinolone (KENALOG) 0.1 % Ointment APPLY SPARINGLY TO AFFECTED AREA(S) 3 TIMES DAILY 80 g 3 Active LORazepam (ATIVAN) 1 MG TabletIndications :Anxiety Take 1 Tablet by mouth 2 times daily. 60 Tablet 4 Active Additional Information Patient not taking.Reported on 12/20/2023 cyclobenzaprine (FLEXERIL) 10 MG TabletIndications :Cervicalgia TAKE 1 TABLET BY MOUTH THREE TIMES A DAY NEEDED FOR MUSCLE SPASM 45 Tablet 1 4 Active atorvastatin (LIPITOR) 20 MG TabletIndications :Hypertriglycerid emia Take 1 Tablet by mouth daily. 90 Tablet 4 Active escitalopram (LEXAPRO) 20 MG Tablet Take 1 Tablet by mouth daily. 90 Tablet 4 Active HYDROcodone-aceta minophen (NORCO) 7.5-325 MG TabletIndications :Chronic midline low back pain with left-sided sciatica Take 1 Tablet by mouth 2 times daily as needed for Moderate or more severe pain. 60 Tablet 4 Active omeprazole (PriLOSEC) 40 MG CAPSULE DELAYED RELEASE TAKE 1 CAPSULE BY MOUTH EVERY DAY 30 Capsule 3 4 Active HYDROcodone-aceta minophen (NORCO) 5-325 MG TabletIndications :Neck pain,Cervical radiculopathy Take 1 Tablet by mouth every 8 hours as needed for Moderate or more severe pain. 12 Tablet 5 Active ketorolac (TORADOL) 10 MG Tablet Take 1 Tablet by mouth every 6 hours as needed for Moderate or more severe pain. 20 Tablet 5 Active meclizine (ANTIVERT) 25 MG TabletIndications :Dizziness,Nausea Take 1 Tablet by mouth 3 times daily as needed for Dizziness or Nausea. Indications: Dizzy, Nausea 30 Tablet 5 Active Active Problems Problem Noted Date Diagnosed Date Hypertriglyceridemia 03/16/2021 Nephrolithiasis 03/15/2021 Anemia 03/15/2021 High blood pressure 12/30/2020 Numbness and tingling of left lower extremity Sacroiliac joint dysfunction of both sides 12/20 Numbness and tingling of right lower extremity 0 12/20/2018 Migraines 12/06/2018 Insomnia 04/30/2018 Overview (12/06/2018): Last Assessment & Plan: ? Etiology of symptoms - labs pending to assess for cause If all neg may benefit from trazodone Pain in joint 06/23/2017 Overview (12/06/2018): Last Assessment & Plan: Pt wants ck for lupus due to mother dying from that Labs pend Spinal stenosis of cervical region 02/05/2016 Overview (12/06/2018): Overview: Cervical stenosis of spinal canal Tobacco dependence syndrome 09/10/2015 Overview (12/06/2018): Overview: Tobacco abuse Depression 03/03/2015 Overview (12/06/2018): Overview: Depression Last Assessment & Plan: New rx given today and instructed on usage and side effects - pt to call in 3-4 wks with progress report Anxiety 07/18/2014 Overview (12/06/2018): Overview: Anxiety Last Assessment & Plan: Medication usage discussed , side effects discussed, refills given and pt to f/u in 6 months Attention deficit disorder 07/18/2014 Overview (12/06/2018): Overview: ADHD Last Assessment & Plan: Medication usage discussed , side effects discussed, refills given and pt to f/u in 6 months Gastroesophageal reflux disease 07/18/2014 Overview (12/06/2018): Overview: GERD Eczema 07/18/2014 Overview (12/06/2018): Overview: Eczema Last Assessment & Plan: Medication usage discussed , side effects discussed, refills given and pt to f/u in 6 months Osteoarthritis of multiple joints 07/18/2014 Overview (12/06/2018): Overview: Osteoarthritis of multiple joints Psoriasis 07/18/2014 Overview (12/06/2018): Overview: Psoriasis Carpal tunnel syndrome 07/18/2014 Overview (12/06/2018): Overview: Carpal tunnel syndrome Chronic midline low back pain with left-sided sc iatica 07/18/2014 Overview (12/06/2018): Overview: Low back pain Last Assessment & Plan: Pt requesting narcotics - told pt she will have to get these from her pain dr - offerred referral to another pain dr but pt declined Resolved Problems Problem Noted Date Diagnosed Date Resolved Date Acute pancreatitis without i nfection or necrosis 03/14/2021 07/29/2021 Acute pain of left knee 06/27/201907/10 Immunizations Immunization Administration Dates Next Due Covid-19, Mrna, Lnp-s, Pf, 30 Mcg/0.3 Ml Dose (P fizer) 01/29/2021,01/08/2021 Influenza Vaccine, Quadrivalent, PF 04/30/2018,1 08/06/2016 TD VACCINE 01/24/2013 TDAP Vaccine 12/13/2013 Family History Medical History Relation Name Comments Hypertension Father Atilio Rheumatoid Arthritis Father Atilio Asthma Mother Zoya Lupus Mother Zoya Rheumatoid Arthritis Mother Zoya Diabetes Paternal Aunt Renetta Relation Name Status Comments Father Atilio Alive Mother Zoya Paternal Aunt Renetta Social History Tobacco Use Types Packs/Day Years Used Date Smoking Tobacco: Every Day Cigarettes 1 15 Smokeless Tobacco: Never Tobacco Cessation:Ready to Q uit: Not Asked; Counseling Given: Not Answered Alcohol Use Standard Drinks/Week Comments No 0 [...] on file Sexual Orientation Not on file Last Filed Vital Signs Vital Sign Reading Time Taken Comments Blood Pressure 128/102 10/28/2024 12:10 PM CDT Pulse 81 10/28/2024 12:11 PM CDT Temperature 36.2 C (97.1 F) 10/28/2024 10:09 AM CDT Respiratory Rate 16 10/28/2024 12:11 PM CDT Oxygen Saturation 100% 10/28/2024 12:11 PM CDT Inhaled Oxygen Concentration - - Weight 81.6 kg (180 lb) 10/28/2024 10:09 AM CDT Height 162.6 cm (5' 4) 10/28/2024 10:09 AM CDT Body Mass Index 30.9 10/28/2024 10:09 AM CDT Plan of Treatment Health Maintenance Due Date Last Done Comments Hepatitis C Virus (HCV) Screening 1979 Hepatitis B Immunization (1 of 3 - 19+ 3-dose series) 1998 Pneumococcal Immunization Combined (1 of 2 - PCV) 1998 Td Immunization Every 10 Yea rs (Adults With 1 Tdap) 12/14/2023 12/13/2013, 01/24/2013 Cologuard 02/29/2024 Colonoscopy 02/29/2024 Colorectal Cancer Screening 02/29/2024 Immunochemical Fecal Occult Blood 02/29/2024 Mammogram 10/17/2024 10/18/2023 Influenza Immunization (#1) 03/10/202504/10, 06/06/2017 SARS-COV-2 Immunization ( season) 2025 01/29/2021, 01/08/2021 Pap Smear 09/11/2026 09/12/2023 Cervical Cancer Screening (CCS) 09/11/2028 HPV/Cotest 09/11/2028 09/12/2023 Respiratory Syncytial Virus (RSV) Immunization (Adult) (1 - 1-dose 75+ series) 2054 Discussion re Starting/Frequency of Mammograms Completed 10/18/2023 Human Papillomavirus (HPV) Immunization Aged Out No longer eligible b ased on patient's age to complete this topic Meningococcal Immunization (ACWY) Aged Out No longer eligible b ased on patient's age to complete this topic Rotavirus Immunization Aged Out No lo nger eligible based on patient's age to complete this topic Procedures Procedure Name Priority Date/Time Associated Diagnosis Comments JOSEFINA SCREENING BILATERAL DIGITAL W CAD W GREER Routine 10/18/2023 12:50 PM CDT Screening mammogram for breast cancer HUMAN PAPILLOMA VIRUS (HPV) Routine 09/12/2023 11:23 AM EMERGENCY MEDICAL TECHNICIAN Screening for malignant neoplasm of cervix PATHOLOGY CYTOLOGY RESIDENTIAL AIDE Routine 09/12/2023 11:23 AM EMERGENCY MEDICAL TECHNICIAN Screening for malignant neoplasm of cervix from Last 3 Months or Most Recently Relevant to Health Maintenance Results * JOSEFINA SCREENING BILATERAL DIGITAL W CAD W GREER (10/18/2023 12:50 PM CDT) Anatomical Region Laterality Modality breast Bilateral Mammography 10/18/2023 2:00 PM CDT Narrative 10/19/2023 9:46 AM CDT - JOSEFINA SCREENING BILATERAL DIGITAL W CAD W GREER BILATERAL DIGITAL SCREENING MAMMOGRAM 3D/2D WITH CAD WITH MEDIOLATERAL OBLIQUE CRANIOCAUDAL: 10/18/2023 The study was acquired using digital technology and interpreted from soft copy. Current study was also evaluated with ICAD version 7.2. 2D digital mammographic views, as well as 3D digital tomosynthesis were performed in the CC and MLO projections. CLINICAL: New baseline. Patient has no complaints. No personal history of cancer. Paternal grandmother had breast cancer. COMPARISONS: No prior exams were available for comparison. BREAST TISSUE:There are scattered fibroglandular densities in both breasts. FINDINGS: No significant masses, calcifications, or other findings are seen in either breast. IMPRESSION: BI-RAD 1 NEGATIVE There is no mammographic evidence of malignancy. A 1 year screening mammogram is recommended. A letter will be sent to the patient with these results. The patient will be entered into a reminder system with a target due date of 1 year for her next screening exam. Electronically signed by: Indra whyte/tim:10/18/2023 16:12:23 Pipeline Superintendent(s): RT Silvana(R)(M), [facility] letter sent: Normal Exam Reading location: [facility] BI-RADS: 1 Negative Procedure Note Indra Junior MD - 10/19/2023 - JOSEFINA SCREENING BILATERAL DIGITAL W CAD W GREER BILATERAL DIGITAL SCREENING MAMMOGRAM 3D/2D WITH CAD WITH MEDIOLATERAL OBLIQUE CRANIOCAUDAL: 10/18/2023 The study was acquired using digital technology and interpreted from soft copy. Current study was also evaluated with ICAD version 7.2. 2D digital mammographic views, as well as 3D digital tomosynthesis were performed in the CC and MLO projections. CLINICAL: New baseline. Patient has no complaints. No personal history of cancer. Paternal grandmother had breast cancer. COMPARISONS: No prior exams were available for comparison. BREAST TISSUE:There are scattered fibroglandular densities in both breasts. FINDINGS: No significant masses, calcifications, or other findings are seen in either breast. IMPRESSION: BI-RAD 1 NEGATIVE There is no mammographic evidence of malignancy. A 1 year screening mammogram is recommended. A letter will be sent to the patient with these results. The patient will be entered into a reminder system with a target due date of 1 year for her next screening exam. Electronically signed by: Indra whyte/tim:10/18/2023 16:12:23 Pipeline Superintendent(s): RT Silvana(R)(M), [facility] letter sent: Normal Exam Reading location: [facility] BI-RADS: 1 Negative us JamalJOANNE Smith APRN MAMMO ORDERA BLES Final Result * PATHOLOGY CYTOLOGY RESIDENTIAL AIDE (09/12/2023 11:23 AM EMERGENCY MEDICAL TECHNICIAN) SPECIMEN ADEQUACY Satisfactory for evaluation. Endocervical/transf ormation zone component is absent. 09/19/2023 1:52 PM CDT [facility] DESCRIPTIVE DIAGNOSIS NEGATIVE FOR INTRAEPITHELIAL LESIONS OR MALIGNANCY. 09/19/2023 1:52 PM CDT [facility] at 1352 CDT Automated Examination Analysis of this sample has been assisted by an automated imaging and review system ([employer] Imaging System, [employer], [place], [place]). This case is further evaluated and finalized by a assistant associate full professor and/or pathologist. 09/19/2023 1:52 PM CDT [facility] Disclaimer The PAP smear is a screening test designed to detect cancerous or precancerous cells of the uterine cervix. It is one of the best means available for detection of cervical cancer but still carries an inherent false-negative rate. The consequences of a false-negative PAP result can be minimized by adhering to current screening guidelines. The following are general guidelines recommended by the ACS, ASCP, ASCCP, and ACOG: PAP testing is recommended every three years for women 21-29, Co-Testing, a PAP test in conjunction with an HPV (Human Papillomavirus) test for women ages 30-65, and no PAP or HPV testing for women under the age of 21 or older than 65 unless clinically indicated. 09/19/2023 1:52 PM CDT [facility] Case Report Gynecologic Cytology Report Case: [id number] Authorizing Provider: Shannan Richter APRN, CNP Collected: 09/12/2023 11:23 AM Ordering Location: [facility] Medical Group - Family Received: 09/12/2023 11:23 AM Medicine [facility] Screen: Brittani Retana Specimen: TP Screen, Cervix/Endocervix, Screening (Asymptomatic) 09/19/2023 1:52 PM CDT [facility] Other CERVIX UTERI STRUCTURE / Unknown Non-Phlebotomy Collection / Unknown 09/12/2023 11:23 AM EMERGENCY MEDICAL TECHNICIAN 09/12/2023 11:23 AM EMERGENCY MEDICAL TECHNICIAN us Shannan Richter APRN, CYLINDER HANDLER PATHOLOGY/CYTOLOGY ORDER MICHELLE Final Result [facility] [address] [place] [address], * HUMAN PAPILLOMA VIRUS (HPV) (09/12/2023 11:23 AM EMERGENCY MEDICAL TECHNICIAN) HPV TYPE 16 NEGATIVE NEGATIVE 09/14/2023 5:59 AM EMERGENCY MEDICAL TECHNICIAN [facility] Comment: A negative high-risk HPV result does not exclude the possibility of future cytologic HSIL or underlying CIN2-3 or cancer. The presence of PCR inhibitors may cause false negative or invalid results. If concentrations of whole blood in the sample exceed 1.5% (dark red or brown coloration) in PreservCyt solution, there is a likelihood of obtaining a false-negative result. HPV TYPE 18 NEGATIVE NEGATIVE 09/14/2023 5:59 AM EMERGENCY MEDICAL TECHNICIAN [facility] Comment: A negative high-risk HPV result does not exclude the possibility of future cytologic HSIL or underlying CIN2-3 or cancer. The presence of PCR inhibitors may cause false negative or invalid results. If concentrations of whole blood in the sample exceed 1.5% (dark red or brown coloration) in PreservCyt solution, there is a likelihood of obtaining a false-negative result. HPV OTHER HIGH RISK TYPES, PCR NEGATIVE NEGATIVE 09/14/2023 5:59 AM EMERGENCY MEDICAL TECHNICIAN [facility] Comment: The following Other High Risk types were not detected: 31, 33, 35, 39, 45, 51, 52, 56, 58, 59, 66, and 68. A negative high-risk HPV result does not exclude the possibility of future cytologic HSIL or underlying CIN2-3 or cancer. The presence of PCR inhibitors may cause false negative or invalid results. If concentrations of whole blood in the sample exceed 1.5% (dark red or brown coloration) in PreservCyt solution, there is a likelihood of obtaining a false-negative result. HPV ORDER BE USED FOR SCREENING OR DIAGNOSTIC SCREENING 09/14/2023 5:59 AM EMERGENCY MEDICAL TECHNICIAN [facility] Other Non-Phlebotomy Collection / Unknown 09/12/2023 11:23 AM EMERGENCY MEDICAL TECHNICIAN 09/12/2023 11:23 AM EMERGENCY MEDICAL TECHNICIAN Narrative [facility] - 09/14/2023 5:59 AM EMERGENCY MEDICAL TECHNICIAN Performed by Real-Time Polymerase Chain Reaction (PCR) on the [employer] 4800. This assay has been validated for use with post-aliquot samples from the [employer] processor. us Shannan Richter APRN, CNP LAB SEND OUTS Final Re sult [facility] [address] [place] [address], [facility] [address] [place] [address] from Last 3 Months or Most Recently Relevant to Health Maintenance Insurance MEDICAID [place] Care Teams Elementary Summer [employer] Teacher Relationship Specialty Start Date End Date Nikolas, JOSE FRANCISCO Palma CNP PCP - General Family Medicine 01/01/24
--- OUTSIDE RECORDS SUMMARY | 2025-05-06 12:44 | XMS_ITS | Encounter Summary ---
Author Organization [facility] Address [address] [address] Phone Care Team Providers Care Fire Control Assistant Name Role Phone Harjit Bhandari MD Primary Care Provider [phone] Minerva Connor APRN, CNP Primary Care Provider [phone] Reason for Visit * Reason Comments Medication Refill Encounter Details Date Type Department Care Team (Late st Contact Info) Description 05/26/2022 Refill [facility] [address] [place] [address] Harjit Bhandari MD [address] [place] [address] Medication Refill Social History Tobacco Use Types [...] Telephone Encounter - Loli Mcrae RN - 05/27/2022 8:16 AM EMBOSSED OR IMPRESSED LETTERING PAINTER PDMP 04/13/2022 #42 Medication failed the protocol, provider to review and approve the medication order if appropriate. Requested Prescriptions Pending Prescriptions Disp Refills cyclobenzaprine (FLEXERIL) 10 MG Tablet [Pharmacy Med Name: CYCLOBENZAPRINE 10 MG TABLET] 42 Tablet0 Sig: TAKE 1 TABLET BY MOUTH 3 TIMES DAILY NEEDED FOR MUSCLE SPASMS FOR UP TO 14 DAYS. CAN MAKE YOU TIRED. TRY AT NIGHT FIRST. Not Delegated - Muscle Relaxants Protocol Failed - 05/26/2022 10:49 PM Failed - This refill cannot be [...] 90 days and meeting all other requirements SSED OR IMPRESSED LETTERING PAINTER documented in this encounter Plan of Treatment Not on file documented as of this encounter Visit Diagnoses Diagnosis Neck pain, musculoskeletal Cervicalgia documented in this encounter Additional Health Concerns Assessment Noted Time PHQ-9 Depression Total Score: 0 06/19/20 19 10:00 AM EMBOSSED OR IMPRESSED LETTERING PAINTER documented as of this encounter Care Teams Fire Control Assistant Relationship Specialty Start Date End Date Harjit Bhandari MD PCP - General Family Medicine 12/06/18 11/20/23 Minerva Connor APRN, CNP PCP - General Family Medicine 01/01/24 documented as of this encounter
--- OUTSIDE RECORDS SUMMARY | 2025-05-06 12:44 | XMS_ITS | Encounter Summary ---
Author Organization [facility] Address [address] [place] [address] Phone Care Team Providers Care Shoemaking Finisher Name Role Phone Harjit Bhandari MD Primary Care Provider Minerva Connor APRN, HEAD CAGER Primary Care Provider [phone] Reason for Visit * Reason Comments Medication Refill Encounter Details Date Type Department Care Team (Late st Contact Info) Description 10/29/2023 Refill [facility] [address]2 [place] [address] Jamal Valdez APRN, HEAD CAGER [address] [address] Medication Refill Social History Tobacco Use Types [...] Telephone Encounter - Jodie Cedillo RN - 10/30/2023 2:46 PM CDT Medication failed the protocol, provider to review and approve the medication order if appropriate. Requested Prescriptions Pending Prescriptions Disp Refills cyclobenzaprine (FLEXERIL) 10 MG Tablet [Pharmacy Med Name: CYCLOBENZAPRINE 10 MG TABLET] 45 Tablet1 Sig: TAKE 1 TABLET BY MOUTH THREE TIMES A DAY NEEDED FOR MUSCLE SPASM Not Delegated - Muscle Relaxants Protocol Failed - 10/29/2023 2:06 PM Failed - This refill cannot be delegated Passed - Visit with relevant provider in past 12 months or upcoming 90 days Recent Visits Date Type Provider Dept 09/12/23 Office Visit Shannan Richter APRN, HEAD CAGER [facility] 08/10/23 Office Visit Jamal Valdez APRN, JOANNE [facility] Showing recent visits within past 365 days and meeting all other requirements Future Appointments Date Type Provider Dept 12/14/23 Appointment Harjit Bhandari MD [facility] Showing future appointments within next 90 days and meeting all other requirements documented in this encounter Plan of Treatment Not on file documented as of this encounter Visit Diagnoses Diagnosis Cervicalgia documented in this encounter Additional Health Concerns Assessment Noted Time PHQ-9 Depression Total Score: 0 09/12/19 9:59 AM ARTIFICIAL FLOWERS SUPERVISOR documented as of this encounter Care Teams Shoemaking Finisher Relationship Specialty Start Date End Date Harjit Bhandari MD PCP - General Family Medicine 12/06/18 11/20/23 Minerva Connor APRN, HEAD CAGER PCP - General Family Medicine 01/01/24 documented as of this encounter
--- OUTSIDE RECORDS SUMMARY | 2025-05-06 12:45 | XMS_ITS | Encounter Summary ---
Author Organization [facility] Address [address] [place] [address] Phone Care Team Providers Care Assistant Store Manager Operations Name Role Phone Harjit Bhandari MD Primary Care Provider [phone] Minerva Connor APRN, CNP Primary Care Provider [phone] Reason for Visit * Reason Comments Medication Refill Encounter Details Date Type Department Care Team (Late st Contact Info) Description 02/13/2022 Refill [facility] #2 [place] [address] Harjit Bhandari MD [address] [place] [address] Medication Refill Social History Tobacco Use Types [...] Telephone Encounter - Jodie Cedillo RN - 02/14/2022 3:05 PM CDT Medication failed the protocol, provider [...] Delegated - Muscle Relaxants Protocol Failed - 02/13/2022 10:25 PM Failed - This refill cannot be delegated Failed - Active on medication list Passed - Visit with relevant provider in past 12 months or upcoming 90 days Recent Visits Date Type Provider Dept 11/04/21 Office Visit Harjit Bhandari MD [facility] 10/12/21 Office Visit Harjit Bhandari MD [facility] 07/29/21 Office Visit Harjit Bhandari MD [facility] 04/02/21 Office Visit Harjit Bhandari MD [facility] 02/15/21 Office Visit Harjit Bhandari MD [facility] Showing recent visits within past 365 days and meeting all other requirements Future Appointments Date Type Provider Dept 03/11/22 Appointment Harjit Bhandari MD [facility] Showing future appointments within next 90 days and meeting all other requirements documented in this encounter Plan of Treatment Not on file documented as of this encounter Visit Diagnoses Diagnosis Neck pain, musculoskeletal Cervicalgia documented in this encounter Additional Health Concerns Assessment Noted Time PHQ-9 Depression Total Score: 0 06/19/20 19 10:00 AM DIVISION HUMAN RESOURCES MANAGER documented as of this encounter Care Teams Assistant Store Manager Operations Relationship Specialty Start Date End Date Harjit Bhandari MD PCP - General Family Medicine 12/06/18 11/20/23 Minerva Connor APRN, JOANNE PCP - General Family Medicine 01/01/24 documented as of this encounter
--- OUTSIDE RECORDS SUMMARY | 2025-05-06 12:45 | XMS_ITS | Encounter Summary ---
Author Organization [facility] Address [address] [place] [address] Phone Care Team Providers Care Hardboard Supervisor Name Role Phone Harjit Bhandari MD Primary Care Provider [phone] Minerva Cnonor APRN, CNP Primary Care Provider [phone] Reason for Visit * Reason Comments Medication Refill Encounter Details Date Type Department Care Team (Late st Contact Info) Description 04/13/2022 Refill [facility] [address]2 [place] [address] Harjit Bhandari MD [address] [place] [address] Medication Refill Social History Tobacco Use Types [...] suspected to have Coronavirus/COVID-19? No / Unsure 03/17/2022 10:31 AM CDT documented as of this encounter Miscellaneous Notes * Telephone Encounter - Bj Cedilloliz Fairchild RN - 04/13/2022 11:00 AM CDT PDMP Lorazepam 02/14/22 Medication failed the protocol, provider to review [...] Delegated - Muscle Relaxants Protocol Failed - 04/13/2022 10:35 AM Failed - This refill cannot be [...] 90 days and meeting all other requirements LORazepam (ATIVAN) 1 MG Tablet [Pharmacy Med Name: LORAZEPAM 1 MG TABLET] 60 Tablet 0 Sig: TAKE 1 TABLET BY MOUTH TWICE A DAY Not Delegated - Benzodiazepines Protocol Failed - 04/13/2022 10:35 AM Failed - This refill cannot be [...] Visit Diagnoses Diagnosis Neck pain, musculoskeletal Cervicalgia Anxiety Anxiety state, unspecified documented in this encounter Additional Health Concerns Assessment Noted Time PHQ-9 Depression Total Score: 0 06/19/20 19 10:00 AM VICE PRESIDENT COMPLIANCE documented as of this encounter Care Teams Hardboard Supervisor Relationship Specialty Start Date End Date aHrjit Bhandari MD PCP - General Family Medicine 12/06/18 11/20/23 Minerva Connor APRN, CNP PCP - General Family Medicine 01/01/24 documented as of this encounter
--- OUTSIDE RECORDS SUMMARY | 2025-05-06 12:45 | XMS_ITS | Encounter Summary ---
Author Organization [facility] Address [address] [place] [address] Phone Care Team Providers Care Exit Booth Agent Name Role Phone Harjit Bhandari MD Primary Care Provider [phone] Minerva Connor APRN, CNP Primary Care Provider [phone] Reason for Visit * Reason Comments Medication Refill Encounter Details Date Type Department Care Team (Late st Contact Info) Description 08/24/2022 Refill [facility] - Family [facility] #2 [place] [address] Harjit Bhandari MD [address] [place] [address] Medication Refill Social History Tobacco Use Types [...] suspected to have Coronavirus/COVID-19? No / Unsure 07/28/2022 4:10 PM DOCKWORKER documented as of this encounter Miscellaneous Notes * Telephone Encounter - Loli Mcrae RN - 08/24/2022 1:30 PM DOCKWORKER PDMP 07/19/22 #60 Medication failed the protocol, provider to review and approve the medication order if appropriate. Requested Prescriptions Pending Prescriptions Disp Refills LORazepam (ATIVAN) 1 MG Tablet [Pharmacy Med Name: LORAZEPAM 1 MG TABLET] 60 Tablet 0 Sig: TAKE 1 TABLET BY MOUTH TWICE A DAY Not Delegated - Benzodiazepines Protocol Failed - 08/24/2022 1:22 PM Failed - This refill cannot be delegated Passed - Visit with relevant provider in past 12 months or upcoming 90 days Recent Visits Date Type Provider Dept 07/28/22 Office Visit Harjit Bhandari MD [facility] 03/17/22 Office Visit Harjit Bhandari MD [facility] 11/04/21 Office Visit Harjit Bhandari MD [facility] 10/12/21 Office Visit Harjit Bhandari MD [facility] Showing recent visits within past 365 days and meeting all other requirements Future Appointments Date Type Provider Dept 08/29/22 Appointment Harjit Bhandari MD [facility] Showing future appointments within next 90 days and meeting all other requirements WORKER documented in this encounter Plan of Treatment Not on file documented as of this encounter Visit Diagnoses Diagnosis Anxiety Anxiety state, unspecified documented in this encounter Additional Health Concerns Assessment Noted Time PHQ-9 Depression Total Score: 0 06/19/20 19 10:00 AM DOCKWORKER documented as of this encounter Care Teams Exit Booth Agent Relationship Specialty Start Date End Date Harjit Bhandari MD PCP - General Family Medicine 12/06/18 11/20/23 Minerva oCnnor APRN, JOANNE PCP - General Family Medicine 01/01/24 documented as of this encounter
--- OUTSIDE RECORDS SUMMARY | 2025-05-06 12:45 | XMS_ITS | Encounter Summary ---
Author Organization [facility] Address [address] [place] [address] Phone Care Team Providers Care Belling Machine Operator Name Role Phone Harjit Bhandari MD Primary Care Provider [phone] Minerva Connor APRN, CNP Primary Care Provider [phone] Reason for Visit * Reason Comments Medication Refill Encounter Details Date Type Department Care Team (Late st Contact Info) Description 07/10/2022 Refill [facility] - Family Medicine [facility] [address] [place] [address] Harjit Bhandari MD [address] [place] [address] Medication Refill Social History Tobacco Use Types [...] Telephone Encounter - Jodie Cedillo RN - 07/12/2022 11:57 AM CST Medication failed the protocol, provider [...] Delegated - Muscle Relaxants Protocol Failed - 07/10/2022 9:40 PM Failed - This refill cannot be [...] requirements Future Appointments Date Type Provider Dept 07/28/22 Appointment Harjit Bhandari MD [facility] Showing future appointments within next 90 days and meeting all other requirements PRESSER documented in this encounter Plan of Treatment Not on file documented as of this encounter Visit Diagnoses Diagnosis Neck pain, musculoskeletal Cervicalgia documented in this encounter Additional Health Concerns Assessment Noted Time PHQ-9 Depression Total Score: 0 06/19/20 19 10:00 AM BUCK PRESSER documented as of this encounter Care Teams Belling Machine Operator Relationship Specialty Start Date End Date Harjit Bhandari MD PCP - General Family Medicine 12/06/18 11/20/23 Minerva Connor APRN, JOANNE PCP - General Family Medicine 01/01/24 documented as of this encounter
--- OUTSIDE RECORDS SUMMARY | 2025-05-06 12:45 | XMS_ITS | Encounter Summary ---
Author Organization [facility] Address [address] [place] [address] Care Team Providers Care Wood Patternmaker Name Role Phone Mely Severino Primary Care Provider [phone] Encounter Details Date Type Department Care Team (Latest Contact Info) Description 09/23/2001 Outpatient Historical HIS PATIENT IN A BED Natalee Waddell MD NO ADDRESS ON FILE OTHER CURR COND-ANTEPARTUM (Primary Dx) Social History Tobacco Use Types Packs/Day Years Used Date Smoking Tobacco: Never Assessed Comments Unknown Sex and Gender Information Value Date Recorded Sex Assigned at Not on file Legal Sex Female 5:24 AM LAST MARKER Gender Identity Not on file Sexual Orientation Not on file documented as of this encounter Plan of Treatment Not on file documented as of this encounter Visit Diagnoses Diagnosis Other current maternal conditions classifiable elsewhere, antepartum- Primary documented in this encounter Care Teams Wood Patternmaker Relationship Specialty Start Date End Date Mely Severino PA PCP - General 08/07/09 documented as of this encounter
--- OUTSIDE RECORDS SUMMARY | 2025-05-06 12:45 | XMS_ITS | Encounter Summary ---
Author Organization [facility] Address [address] [place] [address] Phone Care Team Providers Care Building Maintenance Custodian Name Role Phone Harjit Bhandari MD Primary Care Provider [phone] Minerva Connor APRN, CNP Primary Care Provider [phone] Reason for Visit * Reason Comments Medication Refill Encounter Details Date Type Department Care Team (Late st Contact Info) Description 12/14/2021 Refill [facility] - Family Medicine [facility] [address]2 [place] [address] Harjit Bhandari MD [address] [place] [address] Medication Refill Social History Tobacco Use Types [...] suspected to have Coronavirus/COVID-19? No / Unsure 12/02/2021 1:04 PM CDT documented as of this encounter Miscellaneous Notes * Telephone Encounter - Jodie Cedillo RN - 12/15/2021 11:23 AM CDT Medication failed the protocol, provider [...] Delegated - Muscle Relaxants Protocol Failed - 12/14/2021 8:16 PM Failed - This refill cannot be [...] Total Score: 0 06/19/20 19 10:00 AM MANAGER DIABETES documented as of this encounter Care Teams Building Maintenance Custodian Relationship Specialty Start Date End Date Harjit Bhandari MD PCP - General Family Medicine 12/06/18 11/20/23 Minerva Connor APRN, JOANNE PCP - General Family Medicine 01/01/24 documented as of this encounter
--- OUTSIDE RECORDS SUMMARY | 2025-05-06 12:45 | XMS_ITS | Encounter Summary ---
Author Organization [facility] Address [address] [place] [address] Phone Care Team Providers Care Rackman Name Role Phone Harjit Bhandari MD Primary Care Provider [phone] Minerva Connor APRN, CNP Primary Care Provider [phone] Reason for Visit * Reason Comments Medication Refill Encounter Details Date Type Department Care Team (Late st Contact Info) Description 08/29/2022 Refill [facility] - Family Medicine [facility] #[address] [place] [address] Harjit Bhandari MD [address] [place] [address] Medication Refill Social History Tobacco Use Types [...] Telephone Encounter - Loli Mcrae RN - 08/29/2022 1:42 PM WELT MAKER PDMP 07/14/22 #42 Medication failed the protocol, provider to review and approve the medication order if appropriate. Requested Prescriptions Pending Prescriptions Disp Refills cyclobenzaprine (FLEXERIL) 10 MG Tablet [Pharmacy Med Name: CYCLOBENZAPRINE 10 MG TABLET] 42 Tablet0 Sig: Take 1 Tablet by mouth 3 times daily as needed for Muscle spasms. Not Delegated - Muscle Relaxants Protocol Failed - 08/29/2022 1:35 PM Failed - This refill cannot be [...] 90 days and meeting all other requirements MAKER documented in this encounter Plan of Treatment Not on file documented as of this encounter Visit Diagnoses Diagnosis Neck pain, musculoskeletal Cervicalgia documented in this encounter Additional Health Concerns Assessment Noted Time PHQ-9 Depression Total Score: 0 06/19/20 19 10:00 AM WELT MAKER documented as of this encounter Care Teams Rackman Relationship Specialty Start Date End Date Harjit Bhandari MD PCP - General Family Medicine 12/06/18 11/20/23 Minerva Connor APRN, CNP PCP - General Family Medicine 01/01/24 documented as of this encounter
--- OUTSIDE RECORDS SUMMARY | 2025-05-06 12:46 | XMS_ITS | Clinical Summary ---
Author Organization [facility] Address [address] [place] [address] Phone Care Team Providers Care Automation Control Integrator Name Role Phone Mely Severino Primary Care Provider [phone] Allergies No known active allergies Medications gabapentin (NEURONTIN) 800 mg Oral tablet Take 800 mg by mouth 3 times daily. Active buPROPion XL 24 hour (WELLBUTRIN XL) 300 mg Oral tablet Take 300 mg by mouth daily blanket winder helper. Active desvenlafaxine SR 24 hour (PRISTIQ) 100 mg Oral Tb24 Take by mouth daily with breakfast. Active oxcarbazepine (TRILEPTAL) 300 mg Oral tablet Take 300 mg by mouth 2 times daily. Active ESOMEPRAZOLE MAG TRIHYDRATE (NEXIUM PO) Take by mouth. Active Active Problems Patient Care Coordination No te Formatting of this note migh t be different from the original. Primary Care: AMELIA Stoo Referring Provider: Mely Severino [facility] [place] [address] Other: Problem Noted Date Diagnosed Date Breast pain 08/10/2009 Migraines Joint disorder Back pain Family History Medical History Relation Name Comments Lung Cancer Maternal Grandmother Cancer Paternal Grandfather Breast Cancer Paternal Grandmother age 53 Relation Name Status Comments Maternal Grandmother Paternal Grandfather Paternal Grandmother Social History Tobacco Use Types Packs/Day Years Used Date Smoking Tobacco: Every Day Cigarettes Alcohol Use Standard Drinks/Week Comments No 0 (1 standard drink = 0.6 oz pur e alcohol) Comments No Sex and Gender Information Value Date Recorded Sex Assigned at Not on file Legal Sex Female 5:24 AM METAL ORGAN PIPE MAKER Gender Identity Not on file Sexual Orientation Not on file Last Filed Vital Signs Vital Sign Reading Time Taken Comments Blood Pressure 108/69 08/10/2009 11:22 AM METAL ORGAN PIPE MAKER Pulse - - Temperature - - Respiratory Rate - - Oxygen Saturation - - Inhaled Oxygen Concentration - - Weight 92.5 kg (204 lb) 08/10/2009 11:22 AM METAL ORGAN PIPE MAKER Height 165.1 cm (5' 5) 08/10/2009 11:22 AM METAL ORGAN PIPE MAKER Body Mass Index 33.95 08/10/2009 11:22 AM METAL ORGAN PIPE MAKER Plan of Treatment Health Maintenance Due Date Last Done Comments DTAP/TDAP/TD VACCINES (1 - Tdap) 1998 HEPATITIS B VACCINES (1 of 3 - 19+ 3-dose series) 1998 HPV/Cotest (21-29) 02/29/2000 CERVICAL CANCER SCREENING 2009 HPV/Cotest (30-65) 2009 PAP SMEAR 2009 BREAST CANCER SCREENING 2019 08/06/19 10, 08/06/2009, 08/06/2009 COLORECTAL SCREENING 02/29/2024 Colorectal Cancer Screening 02/29/2024 FIT-DNA Q 3 years 02/29/2024 FIT/FOBT Q 1 year 02/29/2024 Flex Sig/CT Colonography Q 5 years 02/29/2024 INFLUENZA VACCINE (#1) 2025 HPV VACCINES Aged Out No longer eligi ble based on patient's age to complete this topic Procedures Procedure Name Priority Date/Time Associated Diagnosis Comments MAMMO DIAGNOSTIC UNI RIGHT W OR WO CAD Routine 08/06/2009 from Last 3 Months or Most Recently Relevant to Health Maintenance Results * MAMMO DIGITAL DIAG UNI RIGHT (08/06/2009) Anatomical Region Laterality Modality Breast Right Other us Latesha Tracy MD MAMMO ORDERABLES Final Result from Last 3 Months or Most Recently Relevant to Health Maintenance Insurance BCBS BLUE ACCESS/TRUE BLUE PPO Care Teams Automation Control Integrator Relationship Specialty Start Date End Date Mely Severino PA PCP - General 08/07/09
--- OUTSIDE RECORDS SUMMARY | 2025-05-06 12:46 | XMS_ITS | Clinical Summary ---
Author Organization [facility] Address [address] [place] [address] Care Team Providers Care Asphalt Spreader Operator Name Role Phone Chris Nguyen MD Primary Care Provider Social History Tobacco Use Types Packs/Day Years Used Date Smoking Tobacco: Never Assessed Comments Unknown Sex and Gender Information Value Date Recorded Sex Assigned at Not on file Legal Sex Female 4:26 PM CDT Gender Identity Not on file Sexual Orientation Not on file Last Filed Vital Signs Vital Sign Reading Time Taken Comments Blood Pressure 109/72 04/17/2014 2:10 PM CDT Pulse 79 04/17/2014 2:10 PM CDT Temperature - - Respiratory Rate - - Oxygen Saturation - - Inhaled Oxygen Concentration - - Weight 78.5 kg (173 lb) 04/03/2014 11:38 AM CDT Height 165.1 cm (5' 5) 04/17/2014 2:10 PM CDT Body Mass Index 28.79 04/03/2014 11:38 AM CDT Plan of Treatment Health Maintenance Due Date Last Done Comments Cervical Cancer Screening Pa p Smear (Age 30 to 64) Every 3 Years 1979 Colorectal Cancer Screening Colonoscopy (10 Years) 1979 Annual Physical 1982 Hepatitis C 1997 DTaP, Tdap and Td Vaccines ( 1 - Tdap) 1998 Hepatitis B Vaccines (1 of 3 - 19+ 3-dose series) 1998 Cervical Cancer Screening Pa p with HPV Testing (Age 30 to 64) Every 5 Years 2009 Cervical Cancer Screening with HPV 2009 Mammogram Screening 2019 COVID-19 Vaccine (2024-2 6 season) 2025 Influenza Adult (#1) 2025 Hepatitis A Vaccines Aged Out No long er eligible based on patient's age to complete this topic Meningococcal B Vaccine Aged Out No l onger eligible based on patient's age to complete this topic Meningococcal Vaccine Aged Out No adonis tato eligible based on patient's age to complete this topic Pneumococcal Vaccine: Pediat rics (0 to 5 Years) and At-Risk Patients (6 to 49 Years) Aged Out No longer eligible b ased on patient's age to complete this topic RSV Immunizations Under 20 Months Aged Out No longer eligible based on patient's age to complete this topic Care Teams Asphalt Spreader Operator Relationship Specialty Start Date End Date Chris Nguyen MD [address] [place] [address] PCP - General 08/30/12
--- OUTSIDE RECORDS SUMMARY | 2025-05-06 12:46 | XMS_ITS | Encounter Summary ---
Author Organization [facility] Address [address] [place] [address] Phone Care Team Providers Care Math Professor Name Role Phone Harjit Bhandari MD Primary Care Provider [phone] Minerva Connor APRN, CNP Primary Care Provider [phone] Reason for Visit * Reason Comments Medication Refill Encounter Details Date Type Department Care Team (Late st Contact Info) Description 10/22/2020 Refill [facility] Family Medicine [facility] [address]2 [place] [address] Harjit Bhandari MD #1 [place] [address] Medication Refill Social History Tobacco Use Types [...] have Coronavirus / COVID-19? No / Unsure 09/25/2020 12:41 PM CDT documented as of this encounter Miscellaneous Notes * Telephone Encounter - Jodie Cedillo RN - 10/23/2020 10:12 AM CDT Patient got starting month last month. Patient needs continuing month tony Medication failed the protocol, provider to review and approve the medication order if appropriate. Requested Prescriptions Pending Prescriptions Disp Refills varenicline (Chantix Continuing Month Tony) 1 MG Tablet 60 Tablet 1 Sig: Take 1 Tablet by mouth 2 times daily. Not Delegated - Psychiatry: Drug Dependence Therapy Failed - 10/23/2020 10:12 AM Failed - Last BP in normal range BP Readings from Last 1 Encounters: 09/25/20 (!) 154/100 Failed - This refill cannot be delegated Passed - Valid encounter within last 12 months Past Office Visits Recent Outpatient Visits 4 weeks ago Chest pain, unspecified type [facility] Harjit Toussaint MD 2 months ago Primary osteoarthritis involving multiple joints [facility] Harjit Toussaint MD 7 months ago Sacroiliac joint dysfunction of both sides [facility] Harjit Toussaint MD 11 months ago Current moderate episode of major depressive disorder, unspecified whether recurrent (HCC) [facility] Harjit Toussaint MD 1 year ago Acute pain of left knee [facility] Harjit Toussaint MD Upcoming Appointments Future Appointments In 2 months [facility] Recent and Past Visits Recent Visits [...] Appointments Date Type Provider Dept 12/28/20 Appointment Bhandari, Harjit M, MD [facility] Showing future appointments within next 90 days with a meds authorizing provider and meeting all other requirements documented in this encounter Plan of Treatment Not on file documented as of this encounter Visit Diagnoses Not on filedocumented in this encounter Additional Health Concerns Assessment Noted Time PHQ-9 Depression Total Score: 0 06/19/20 10:00 AM PLATE CLEANER documented as of this encounter Care Teams Math Professor Relationship Specialty Start Date End Date Harjit Bhandari MD PCP - General Family Medicine 12/06/18 11/20/23 Minerva Connor APRN, CUSTOMER ACCOUNTS ADVISOR PCP - General Family Medicine 01/01/24 documented as of this encounter
--- OUTSIDE RECORDS SUMMARY | 2025-05-06 12:46 | XMS_ITS | Encounter Summary ---
Author Organization [facility] Address [address] [place] [address] Phone Care Team Providers Care Trust Accounts Supervisor Name Role Phone Harjit Bhandari MD Primary Care Provider [phone] Minerva Connor APRN, CNP Primary Care Provider [phone] Reason for Visit * Reason Comments Medication Refill Encounter Details Date Type Department Care Team (Late st Contact Info) Description 07/19/2022 Refill [facility] [address] [place] [address] Harjit Bhandari MD [address] [place] [address] Medication Refill Social History Tobacco Use Types [...] Telephone Encounter - Loli Mcrae RN - 07/19/2022 10:43 AM INSTRUCTOR INDUSTRIAL DESIGN PDMP 06/17/2022 #60 Medication failed the protocol, provider to review and approve the medication order if appropriate. Requested Prescriptions Pending Prescriptions Disp Refills LORazepam (ATIVAN) 1 MG Tablet [Pharmacy Med Name: LORAZEPAM 1 MG TABLET] 60 Tablet 0 Sig: TAKE 1 TABLET BY MOUTH TWICE A DAY Not Delegated - Benzodiazepines Protocol Failed - 07/19/2022 10:20 AM Failed - This refill cannot be [...] 90 days and meeting all other requirements RUCTOR INDUSTRIAL DESIGN documented in this encounter Plan of Treatment Not on file documented as of this encounter Visit Diagnoses Diagnosis Anxiety Anxiety state, unspecified documented in this encounter Additional Health Concerns Assessment Noted Time PHQ-9 Depression Total Score: 0 06/19/20 19 10:00 AM INSTRUCTOR INDUSTRIAL DESIGN documented as of this encounter Care Teams Trust Accounts Supervisor Relationship Specialty Start Date End Date Harjit Bhandari MD PCP - General Family Medicine 12/06/18 11/20/23 Minerva Connor APRN, CNP PCP - General Family Medicine 01/01/24 documented as of this encounter
--- OUTSIDE RECORDS SUMMARY | 2025-05-06 12:46 | XMS_ITS | Encounter Summary ---
Author Organization [facility] Address [address] [place] [address] Phone Care Team Providers Care Olericulturist Name Role Phone Harjit Bhandari MD Primary Care Provider [phone] Minerva Connor APRN, CNP Primary Care Provider [phone] Reason for Visit * Reason Comments Medication Refill Encounter Details Date Type Department Care Team (Late st Contact Info) Description 07/23/2022 Refill [facility] [address] [place] [address] Harjit Bhandari MD [address] [place] [address] Medication Refill Social History Tobacco Use Types [...] Telephone Encounter - Loli Mcrae RN - 07/25/2022 8:39 AM SUPERVISOR SPEECH Medication failed the protocol, provider to review and approve the medication order if appropriate. Requested Prescriptions Pending Prescriptions Disp Refills atorvastatin (LIPITOR) 20 MG Tablet [Pharmacy Med Name: ATORVASTATIN 20 MG TABLET] 90 Tablet 3 Sig: TAKE 1 TABLET BY MOUTH EVERY DAY Hmg CoA Reductase Inhibitors Protocol Failed - 07/23/2022 10:38 AM Failed - Lipid panel in past 12 months No results found for: LDL, HDLCHOLESTE, CHOLESTEROL, TRIGLYCRIDES, VLDL, CHDL, HDLNON Passed - No positive test in the past 12 months or most recent test was negative Passed - Visit with relevant provider in [...] and meeting all other requirements Passed - No active on record RVISOR SPEECH documented in this encounter Plan of Treatment Not on file documented as of this encounter Visit Diagnoses Diagnosis Hypertriglyceridemia Pure hyperglyceridemia documented in this encounter Additional Health Concerns Assessment Noted Time PHQ-9 Depression Total Score: 0 06/19/20 19 10:00 AM SUPERVISOR SPEECH documented as of this encounter Care Teams Olericulturist Relationship Specialty Start Date End Date Harjit Bhandari MD PCP - General Family Medicine 12/06/18 11/20/23 Minerva Connor APRN, JOANNE PCP - General Family Medicine 01/01/24 documented as of this encounter
--- OUTSIDE RECORDS SUMMARY | 2025-05-06 12:46 | XMS_ITS | Encounter Summary ---
Author Organization [facility] Address [address] [place] [address] Phone Care Team Providers Care Polysomnographic Technician Name Role Phone Harjit Bhandari MD Primary Care Provider [phone] Minerva Connor APRN, CNP Primary Care Provider [phone] Reason for Visit * Reason Comments Medication Refill Encounter Details Date Type Department Care Team (Late st Contact Info) Description 10/09/2020 Refill [facility] - [facility] [address] [place] [address] Harjit Bhandari MD [address] [place] [address] Medication Refill Social History Tobacco Use Types [...] Telephone Encounter - Jodie Cedillo RN - 10/09/2020 4:46 PM CDT The original prescription was discontinued on 09/25/2020 by Harjit Bhandari MD documented in this encounter Plan of Treatment Not on file documented as of this encounter Visit Diagnoses Not on filedocumented in this encounter Additional Health Concerns Assessment Noted Time PHQ-9 Depression Total Score: 0 06/19/20 19 10:00 AM FIXED INCOME MANAGER documented as of this encounter Care Teams Polysomnographic Technician Relationship Specialty Start Date End Date Harjit Bhandari MD PCP - General Family Medicine 12/06/18 11/20/23 Minerva Connor APRN, CNP PCP - General Family Medicine 01/01/24 documented as of this encounter
--- OUTSIDE RECORDS SUMMARY | 2025-05-06 12:46 | XMS_ITS | Encounter Summary ---
Author Organization [facility] Address [address] [place] [address] Phone Care Team Providers Care Business Systems Consultant Name Role Phone Harjit Bhandari MD Primary Care Provider [phone] Minerva Connor APRN, CNP Primary Care Provider [phone] Reason for Visit * Reason Comments Medication Refill Encounter Details Date Type Department Care Team (Late st Contact Info) Description 08/12/2022 Refill [facility] - Family [facility] [address] [place] [address] Harjit Bhandari MD [address] [place] [address] Medication Refill Social History Tobacco Use Types [...] Coronavirus/COVID-19? No / Unsure 07/28/2022 4:10 PM MEAT PRESS OPERATOR documented as of this encounter Miscellaneous Notes * Telephone Encounter - Jodie Cedillo RN - 08/15/2022 7:37 AM CST PRN medication requires review from provider Per nursing clinical judgement, provider to review and approve the medication(s) order(s) if appropriate. Requested Prescriptions Pending Prescriptions Disp Refills albuterol 108 (90 Base) MCG/ACT Aerosol Solution [Pharmacy Med Name: ALBUTEROL HFA (VENTOLIN) INH] 18 g 1 Sig: INHALE 2 PUFFS BY MOUTH EVERY 4 HOURS NEEDED FOR WHEEZE Short Acting Inhaled Beta-Agonists Protocol Passed - 08/12/2022 5:33 PM Passed - Visit with relevant provider in [...] 90 days and meeting all other requirements PRESS OPERATOR documented in this encounter Plan of Treatment Not on file documented as of this encounter Visit Diagnoses Diagnosis Bronchospasm Acute bronchospasm documented in this encounter Additional Health Concerns Assessment Noted Time PHQ-9 Depression Total Score: 0 06/19/20 19 10:00 AM MEAT PRESS OPERATOR documented as of this encounter Care Teams Business Systems Consultant Relationship Specialty Start Date End Date Harjit Bhandari MD PCP - General Family Medicine 12/06/18 11/20/23 Minreva Connor APRN, JOANNE PCP - General Family Medicine 01/01/24 documented as of this encounter
--- OUTSIDE RECORDS SUMMARY | 2025-05-06 12:46 | XMS_ITS | Encounter Summary ---
Author Organization [facility] Address [address] [place] [address] Phone Care Team Providers Care 1St Grade Teacher Name Role Phone Harjit Bhandari MD Primary Care Provider [phone] Minerva Connor APRN, CNP Primary Care Provider [phone] Reason for Visit * Reason Comments Medication Refill Encounter Details Date Type Department Care Team (Late st Contact Info) Description 08/27/2020 Refill [facility] - Family Medicine [facility] [address] [place] [address] Harjit Bhandari MD [address] [place] [address] Medication Refill Social History Tobacco Use Types [...] have Coronavirus / COVID-19? No / Unsure 08/13/2020 10:02 AM HOT BILLET SHEAR OPERATOR documented as of this encounter Miscellaneous Notes * Telephone Encounter - Bj Cedilloliz Fairchild RN - 08/28/2020 8:47 AM CST [place] PDMP checked Medication failed the protocol, provider to review and approve the medication order if appropriate. Requested Prescriptions Pending Prescriptions Disp Refills LORazepam (ATIVAN) 1 MG Tablet [Pharmacy Med Name: LORAZEPAM 1 MG TABLET] 60 Tablet 0 Sig: TAKE 1 TABLET BY MOUTH TWICE A DAY Not Delegated - Anesthesia: Anesthetics & Sedatives Failed - 08/28/2020 8:46 AM Failed - This refill cannot be delegated Passed - Valid encounter within last 6 months Past Office Visits Recent Outpatient Visits 2 weeks ago Primary osteoarthritis involving multiple joints [facility] Harjit Toussaint MD 5 months ago Sacroiliac joint dysfunction of both sides [facility] Harjit Toussaint MD 9 months ago Current moderate episode of major depressive disorder, unspecified whether recurrent (HCC) [facility] Harjit Toussaint MD 1 year ago Acute pain of left knee [facility] Harjit Toussaint MD 1 year ago Attention deficit hyperactivity disorder (ADHD), combined type [facility] Harjit Toussaint MD Upcoming Appointments PARTS CLERK PLANT MAINTENANCE - Recent and Past Visits Recent Visits Date Type Provider Dept 08/13/20 Telemedicine Harjit Bhandari MD [facility] 03/04/20 Telemedicine Harjit Bhandari MD [facility] 11/25/19 Office Visit Harjit Bhandari MD [facility] 06/19/19 Office Visit Harjit Bhandari MD [facility] Showing recent visits within past 460 days with a meds authorizing provider and meeting all other requirements Future Appointments No visits were found meeting these conditions. Showing future appointments within next 90 days with a meds authorizing provider and meeting all other requirements pregabalin (LYRICA) 50 MG Capsule [Pharmacy Med Name: PREGABALIN 50 MG CAPSULE] 90 Capsule 0 Sig: TAKE 1 CAP BY MOUTH 3 TIMES DAILY. NEEDS APPOINTMENT BEFORE FURTHER REFILLS. Not Delegated - Neurology: Anticonvulsants - Controlled Substances Failed - 08/28/2020 8:46 AM Failed - This refill cannot be delegated Passed - Valid encounter within last 12 months Past Office Visits Recent Outpatient Visits 2 weeks ago Primary osteoarthritis involving multiple joints [facility] - Harjit Brown MD 5 months ago Sacroiliac joint dysfunction of both sides [facility] - Harjit Brown MD 9 months ago Current moderate episode of major depressive disorder, unspecified whether recurrent (HCC) [facility] Harjit Toussaint MD 1 year ago Acute pain of left knee [facility] Harjit Toussaint MD 1 year ago Attention deficit hyperactivity disorder (ADHD), combined type [facility] - Harjit Brown MD Upcoming Appointments PARTS CLERK PLANT MAINTENANCE - Recent and Past Visits Recent Visits Date Type Provider Dept 08/13/20 Telemedicine Harjit Bhandari MD [facility] 03/04/20 Telemedicine Harjit Bhandrai MD [facility] 11/25/19 Office Visit Harjit Bhandari MD [facility] 06/19/19 Office Visit Harjit Bhandari MD [facility] Showing recent visits within past 460 days with a meds authorizing provider and meeting all other requirements Future Appointments No visits were found meeting these conditions. Showing future appointments within next 90 days with a meds authorizing provider and meeting all other requirements BILLET SHEAR OPERATOR documented in this encounter Plan of Treatment Not on file documented as of this encounter Visit Diagnoses Diagnosis Anxiety Anxiety state, unspecified documented in this encounter Additional Health Concerns Assessment Noted Time PHQ-9 Depression Total Score: 0 06/19/20 19 10:00 AM HOT BILLET SHEAR OPERATOR documented as of this encounter Care Teams 1St Grade Teacher Relationship Specialty Start Date End Date Harjit Bhandari MD PCP - General Family Medicine 12/06/18 11/20/23 Minerva Connor APRN, SHEET METAL WELDER PCP - General Family Medicine 01/01/24 documented as of this encounter
--- OUTSIDE RECORDS SUMMARY | 2025-05-06 12:47 | XMS_ITS | Clinical Summary ---
Author Organization [facility] Address [address] [place] [address] Care Team Providers Care Auto Refinisher Name Role Phone Minerva Connor NP Primary Care Provider Allergies No known active allergies Medications albuterol HFA (PROVENTIL HFA,VENTOLIN HFA,PROAIR HFA) 90 mcg/actuation inhaler Inhale 2 puff by inhalation route every 4-6 hours as needed 1 Inhaler 1 8 Active LORazepam (ATIVAN) 1 mg tablet Take 1 tablet (1 mg total) by mouth 2 (two) times a day. 60 tablet 9 Active dextroamphetami ne-amphetamine (ADDERALL) 20 mg tablet Take 1 tablet (20 mg total) by mouth daily 30 tablet 9 Active LORazepam (ATIVAN) 1 mg tablet TAKE 1 TABLET(1 MG) BY MOUTH TWICE DAILY 60 tablet 9 Active escitalopram (LEXAPRO) 20 mg tablet Take 20 mg by mouth nightly 1 Active hydroCHLOROthia zide (HYDRODIURIL) 25 mg tablet Take 25 mg by mouth daily 1 Active HYDROcodone-hector taminophen (NORCO) 7.5-325 mg per tablet TAKE 1 TABLET BY MOUTH 2 TIMES DAILY NEEDED FOR MODERATE OR MORE SEVERE PAIN. 1 Active omeprazole (PriLOSEC) 40 mg capsule Take 40 mg by mouth daily 1 Active atorvastatin (LIPITOR) 20 mg tablet Take 1 tablet (20 mg total) by mouth nightly 30 tablet 2 1 Active methocarbamoL (ROBAXIN) 500 mg tablet Take 1 tablet (500 mg total) by mouth 2 (two) times a day 20 tablet 3 Active lidocaine (LIDODERM) 5 % Place 1 patch on the skin daily Remove & discard patch within 12 hours or as directed by MD. 14 patch 3 Active ketorolac (TORADOL) 10 mg tablet Take 1 tablet (10 mg total) by mouth every 6 (six) hours as needed for pain 20 tablet 3 Active traZODone (DESYREL) 50 mg tablet TAKE 1/2 TABLETS BY MOUTH AT BEDTIME NEEDED FOR SLEEP. 5 Active Active Problems Problem Noted Date Diagnosed Date Hypertriglyceridemia 03/16/2021 Anemia 03/15/2021 Nephrolithiasis 03/15/2021 Acute pancreatitis without infection or necrosis 03/14/2021 Obesity (BMI 30-39.9) 04/30/2018 Assessment & Plan (04/30/2018 11:14 AM CDT): Pt has been advised on diet/exercise/weight loss Insomnia 04/30/2018 Overview (09/13/2020): Last Assessment & Plan: ? Etiology of symptoms - labs pending to assess for cause If all neg may benefit from trazodone Assessment & Plan (04/30/2018 11:14 AM CDT): ? Etiology of symptoms - labs pending to assess for cause If all neg may benefit from trazodone Fatigue 04/30/2018 Assessment & Plan (04/30/2018 11:15 AM CDT): ? Etiology of symptoms - labs pending to assess for cause Possibly thyroid related Right leg pain 09/22/2017 Assessment & Plan (09/22/2017 11:09 AM CDT): Doppler u/s pend prob cyst and will need ortho ref Arthralgia 06/23/2017 Assessment & Plan (06/23/2017 1:13 PM STORE CLERK CASHIER): Pt wants ck for lupus due to mother dying from that Labs pend Overweight (BMI 25.0-29.9) 06/06/2017 Assessment & Plan (09/22/2017 11:09 AM CDT): Pt has been advised on diet/exercise/weight loss Assessment & Plan (06/06/2017 12:41 PM STORE CLERK CASHIER): Pt has been advised on diet/exercise/weight loss Ganglion cyst 03/16/2017 Assessment & Plan (03/16/2017 11:46 AM CDT): Sx tx - refer ortho if worsens Spinal stenosis of cervical region 02/05/2016 Overview (09/13/2020): Cervical stenosis of spinal canal Overview: Cervical stenosis of spinal canal Right shoulder pain 02/05/2016 Overview (10/14/2016): Pain of right shoulder region Postconcussion syndrome 11/03/2015 Overview (10/13/2016): Post concussion syndrome Cough 09/10/2015 Overview (10/13/2016): Cough Tobacco dependence syndrome 09/10/2015 Overview (09/13/2020): Tobacco abuse Overview: Tobacco abuse Depression 03/03/2015 Overview (09/13/2020): Depression Overview: Depression Last Assessment & Plan: New rx given today and instructed on usage and side effects - pt to call in 3-4 wks with progress report Assessment & Plan (06/06/2017 12:40 PM STORE CLERK CASHIER): New rx given today and instructed on usage and side effects - pt to call in 3-4 wks with progress report Osteoarthritis of multiple joints 07/18/2014 Overview (09/13/2020): Osteoarthritis of multiple joints Overview: Osteoarthritis of multiple joints Eczema 07/18/2014 Overview (09/13/2020): Eczema Overview: Eczema Last Assessment & Plan: Medication usage discussed , side effects discussed, refills given and pt to f/u in 6 months Assessment & Plan (06/06/2017 12:39 PM STORE CLERK CASHIER): Medication usage discussed , side effects discussed, refills given and pt to f/u in 6 months Psoriasis 07/18/2014 Overview (09/13/2020): Psoriasis Overview: Psoriasis Gastroesophageal reflux disease 07/18/2014 Overview (09/13/2020): GERD Overview: GERD Attention deficit disorder 07/18/2014 Overview (09/13/2020): ADHD Overview: ADHD Last Assessment & Plan: Medication usage discussed , side effects discussed, refills given and pt to f/u in 6 months Assessment & Plan (04/30/2018 11:14 AM CDT): Medication usage discussed , side effects discussed, refills given and pt to f/u in 6 months Assessment & Plan (06/06/2017 12:39 PM STORE CLERK CASHIER): Medication usage discussed , side effects discussed, refills given and pt to f/u in 6 months Chronic bilateral low back pain without sciatica 07/18/2014 Overview (10/13/2016): Low back pain Assessment & Plan (06/06/2017 12:40 PM STORE CLERK CASHIER): Pt requesting narcotics - told pt she will have to get these from her pain dr - offerred referral to another pain dr but pt declined Assessment & Plan (03/16/2017 11:46 AM CDT): New rx given today and instructed on usage and side effects - pt to call in 3-4 wks with progress report Referred ortho Carpal tunnel syndrome 07/18/2014 Overview (09/13/2020): Carpal tunnel syndrome Overview: Carpal tunnel syndrome Anxiety 07/18/2014 Overview (09/13/2020): Anxiety Overview: Anxiety Last Assessment & Plan: Medication usage discussed , side effects discussed, refills given and pt to f/u in 6 months Assessment & Plan (06/23/2017 1:13 PM STORE CLERK CASHIER): Medication usage discussed , side effects discussed, refills given and pt to f/u in 6 months Sciatica 07/18/2014 Overview (10/13/2016): Sciatica Hypokalemia Immunizations Immunization Administration Dates Next Due Influenza, Quadrivalent, Spl it, Preservative Free, Intramuscular 04/30/2018,06/06/2017 TD Preservative Free 01/24/2013 Surgical History Surgery Date Site/Laterality Comments CHOLECYSTECTOMY Cholecystectomy SECTION UMBILICAL HERNIA REPAIR umbilical hernia OTHER SURGICAL HISTORY lythetripsy Medical History Medical History Date Comments Hx Other Medical 2 c-sections Hx Other Medical Headache, migra ine Depression Depression Hx Other Medical ; Outc ome: 4 week Unknown sex Embolism (HCC) Blood clots Hx Other Medical hx of PE 2008 Hx Other Medical LS disc disease Hx Other Medical 03/2011 kidney stones; Comments: CLS 07/18/2014 - Hx Other Medical 02/2010 PE; Comments: C LS 07/18/2014 - Hx Other Medical eczema; Comment s: MACEY 07/18/2014 - Hx Other Medical psoriasis; Comm ents: MACEY 07/18/2014 - Hx Other Medical ADHD; Comments: MACEY 07/18/2014 -scripts filled by psychiatrist Dr Grier. Anxiety disorder Anxiety; Commen ts: MACEY 07/18/2014 -script for lorazepam filled by psychiatrist Dr Grier Osteoarthritis Osteoarthritis; Comments: MACEY 07/18/2014 -multiple joints Hx Other Medical carpal tunnel, bilat; Comments: MACEY 07/18/2014 - Family History Medical History Relation Name Comments Hyperlipidemia Father Hyperlipidemi a; Hypertension Father Hypertension; Rheum arthritis Father Rheumatoid a rthritis; Lung cancer Maternal Grandmother Cancer, lung; Hypertension Mother Hypertension; Lupus Mother Lupus erythemat osus; Cause of : Lupus erythematosus/Lupus erythematosus; Cause of : Lupus erythematosus Rheum arthritis Mother Rheumatoid a rthritis; Other Other 1 Family history of Lupus erythematosus; Rheum arthritis Other 2 Family histo ry of Rheumatoid arthritis; Breast cancer Paternal Grandmother Cancer , breast; Other Sister 2 Alive and well; Relation Name Status Comments Father Maternal Grandmother Mother (Age 52) Other 1 Other 2 Paternal Grandmother Sister 1 Alive Sister 2 Social History Tobacco Use Types Packs/Day Years Used Date Smoking Tobacco: Heavy Smoker Cigarettes Smokeless Tobacco: Never Comments:Smoking History Pac ks/day: 10 Cigarettes Alcohol Use Standard Drinks/Week Comments No 0 (1 standard drink = 0.6 oz pur e alcohol) PHQ-2 Answer Date Recorded PHQ-2 Score 0 03/01/2019 Personal Safety Answer Date Recorded Have you ever been in or are you currently in a harmful physical or emotional relationship or is someone making you feel afraid or unsafe? Denies 09/04/2024 Comments No Sex and Gender Information Value Date Recorded Sex Assigned at Not on file Legal Sex Female 1:50 AM STORE CLERK CASHIER Gender Identity Not on file Sexual Orientation Not on file Obstetrics History Last Filed Vital Signs Vital Sign Reading Time Taken Comments Blood Pressure 122/85 09/04/2024 9:43 PM STORE CLERK CASHIER Pulse 73 09/04/2024 9:41 PM STORE CLERK CASHIER Temperature 37.1 C (98.8 F) 09/04/2024 9:41 PM STORE CLERK CASHIER Respiratory Rate 18 09/04/2024 9:41 PM STORE CLERK CASHIER Oxygen Saturation 98% 09/04/2024 9:41 PM STORE CLERK CASHIER Inhaled Oxygen Concentration - - Weight 79.4 kg (175 lb) 09/04/2024 9:41 PM STORE CLERK CASHIER Height 162.6 cm (5' 4) 09/04/2024 9:41 PM STORE CLERK CASHIER Body Mass Index 30.04 09/04/2024 9:41 PM STORE CLERK CASHIER Plan of Treatment Health Maintenance Due Date Last Done Comments Cervical Cancer Screening 1979 Hepatitis C Screening 1979 Hepatitis B Screening 1997 Regular Well Visit/Exam 18-64 1997 Pneumococcal vaccine <65 (1 of 2 - PCV) 1998 Depression Screening 04/30/2019 04/30/2018, 09/22/2017, 06/23/2017, Additional history exists Colon Cancer Screening-Colonoscopy 06/23/2020 06/23/2010 DTaP/Tdap/Td Vaccine (2 - Td or Tdap) 12/14/2023 12/13/2013, 01/24/2013 Breast Cancer Screening-Mammogram 10/17/2024 10/18/2023, 10/18/2023 Covid-19 Vaccine (2024- season) 2025 01/29/2021, 01/08/2021 Influenza Vaccine (#1) 2025 04/30/2018, 2016 HPV Vaccines Aged Out No longer eligi ble based on patient's age to complete this topic Procedures Procedure Name Priority Date/Time Associated Diagnosis Comments COLONOSCOPY Routine 06/23/2010 from Last 3 Months or Most Recently Relevant to Health Maintenance Results * COLONOSCOPY (06/23/2010) Colonoscopy Normal [facility] Provider MD HEALTH MAINTENANCE Final Result from Last 3 Months or Most Recently Relevant to Health Maintenance Insurance [facility] [employer] [place] [place] Advance Directives For more information, please contact: [phone] * Full Code (Latest Code Status on File) Date Activated Date Inactivated Comments 03/14/2021 4:57 PM 03/18/2021 8:18 PM * Full Code Date Activated Date Inactivated Comments 07/20/2018 12:34 AM 07/20/2018 3:55 PM Care Teams Auto Refinisher Relationship Specialty Start Date End Date Minerva Connor NP [address] [place] [address] PCP - General Nurse Practitioner 03/21/24
--- OUTSIDE RECORDS SUMMARY | 2025-05-06 12:47 | XMS_ITS | Encounter Summary ---
Author Organization [facility] Address [address] [place] [address] Care Team Providers Care Quality Assurance Supervisor Final Name Role Phone Chris Nguyen MD Primary Care Provider [phone] Encounter Details Date Type Department Care Team (Latest Contact Info) Description 05/15/2018 Abstract [facility] , Alex De La Rosa MD Social History Tobacco Use Types Packs/Day Years [...] Diagnoses Not on filedocumented in this encounter Care Teams Quality Assurance Supervisor Final Relationship Specialty Start Date End Date Chris Nguyen MD [address] [place] [address] PCP - General 08/30/12 documented as of this encounter
== END 2025-05-06 10:50 | disposition home or self-care (01) ==
PROVIDERS: PCP Family Medicine; Visit Provider Nurse Practitioner Family
DX: R10.33 Periumbilical pain (principal)
CPT/HCPCS: 76705